=== PATIENT | female | born 1990 | race Two or more races ===

== ENCOUNTER 2018-05-15 00:16 | Emergency (ER) | payer BC, OTHER ==
[2018-05-15] MEDS ORDERED: Ondansetron 4 MG/2 ML SDV IVPUSH ONE (00:52)
[2018-05-15] MEDS ORDERED: HYDROmorphone 1 MG/ML Syringe IVPUSH ONE (00:52)
--- NOTE | 2018-05-15 00:59 | EDM.PDOC ---
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 The pain alternates between sharp and dull , and radiates to her lower right back. It is constant, and the patient has not identified any modifiers. She denies associated fever, nausea, vomiting, constipation, or diarrhea. She denies having dysuria, but states that she did have urinary urgency just before coming to the ER. The patient states that she has a history of polycystic ovarian disease, but that this current episode is different than those. No prior similar symptoms. The patient's LMP was 04/30/2018. The patient is not on control, in fact, the patient and her are trying to get . She is 0. No vaginal bleeding tonight. The patient's last ate around 18:00. The patient's PCP is Nevaeh Marte. Her Orange Picker is Dr. Renetta Ramsay. 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 History: Reports: Polycystic Ovaries Endocrine/Metabolic History: Reports: Obesity/BMI 30+ - Past Surgical History GI Surgical History: Reports: Cholecystectomy (2015) Female Surgical History: Reports: Other (See Below) (Hysteroscopy Feb 2018) Social & Family History - Tobacco Use Smoking Status *Q: Never Smoker Second Hand Smoke Exposure: No - Caffeine Use Caffeine Use: Reports: None - Alcohol Use Alcohol Use History: Yes Alcohol Use Frequency: Rarely - Recreational Drug Use Recreational Drug Use: No - Living Situation & Occupation Living situation: Reports: , with Spouse 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 ED EXAM, GENERAL - Physical Exam Exam: See Below Exam Limited By: No Limitations General Appearance: Alert, WD/WN, No Apparent Distress (Appears uncomfortable) Eye Exam: Bilateral Eye: EOMI, Normal Inspection Ears: Normal External Exam, Hearing Grossly Normal Nose: Normal Inspection Throat/Mouth: Normal Inspection, Normal Lips, Normal Voice, No Airway Compromise Head: Atraumatic, Normocephalic Neck: Normal Inspection, Full Range of Motion Respiratory/Chest: No Respiratory Distress, Lungs Clear, Normal Breath Sounds, No Accessory Muscle Use Cardiovascular: Normal Peripheral Pulses, Regular Rate, Rhythm, No Gallop, No JVD, No Murmur, No Rub Peripheral Pulses: 4+: Radial (L), Radial (R) GI/Abdominal: Normal Bowel Sounds, Soft, No Organomegaly, No Distention, No Abnormal Bruit, No Mass, Tender (Right lower quadrant only. Nontender elsewhere. ), Other (Obese) (Female) Exam: Deferred Rectal (Female) Exam: Deferred Back Exam: Normal Inspection, Full Range of Motion, CVA Tenderness (R). No: CVA Tenderness (L) Extremities: Normal Inspection, Normal Range of Motion, No Pedal Edema, Normal Capillary Refill Neurological: Alert, Oriented, Normal Cognition, No Motor/Sensory Deficits Psychiatric: Normal Affect Skin Exam: Warm, Dry, Intact, Normal Color, No Rash Course - Vital Signs Last Recorded V/S: Last Vital Signs Temp Pulse 80 05/15/18 00:29 Resp 20 05/15/18 00:29 BP 129/74 05/15/18 00:29 Pulse Ox 98 05/15/18 00:29 - Orders/Labs/Meds Orders: Active Orders 24 hr Category Date Time Status Abdomen Pelvis w Cont [CT] Stat Exams 05/15/18 02:37 Taken Transvaginal Non OB [US] Stat Exams 05/15/18 02:38 Taken Sodium Chloride 0.9% [Normal Saline] 1,000 ml Med 05/15/18 01:00 Active IV ASDIRECTED Medication Orders Sodium Chloride (Normal Saline) 1,000 mls @ 150 mls/hr IV ASDIRECTED AUGUSTO Last Admin: 05/15/18 01:07 Dose: 150 mls/hr Labs: Laboratory Tests 05/15/18 05/15/18 05/15/18 Range/Units 00:40 00:40 01:05 WBC 9.53 (3.98-10.04) K/mm3 RBC 4.79 (3.98-5.22) M/mm3 Hgb 14.2 (11.2-15.7) gm/L Hct 43.2 (34.1-44.9) % MCV 90.2 (79.4-94.8) fl MCH 29.6 (25.6-32.2) pg MCHC 32.9 (32.2-35.5) g/dl RDW Std Deviation 43.0 (36.4-46.3) fL Plt Count 348 (182-369) K/mm3 MPV 10.0 (9.4-12.3) fl Neutrophils % (Manual) 43 (40-60) % Band Neutrophils % 0 (0-10) % Lymphocytes % (Manual) 42 H (20-40) % Atypical Lymphs % 0 % Monocytes % (Manual) 12 H (2-10) % Eosinophils % (Manual) 2 (0.7-5.8) % Basophils % (Manual) 1 (0.1-1.2) Platelet Estimate Adequate Plt Morphology Comment Normal RBC Morph Comment Normal Sodium 143 (136-145) mEq/L Potassium 3.5 (3.5-5.1) mEq/L Chloride 106 (98-107) mEq/L Carbon Dioxide 26 (21-32) mEq/L Anion Gap 14.5 (5-15) BUN 9 (7-18) mg/dL Creatinine 0.9 (0.55-1.02) mg/dL Est Cr Clr Drug Dosing 75.58 mL/min Estimated GFR (MDRD) > 60 (>60) mL/min BUN/Creatinine Ratio 10.0 L (14-18) Glucose 98 (74-106) mg/dL Calcium 9.0 (8.5-10.1) mg/dL Total Bilirubin 0.4 (0.2-1.0) mg/dL AST 20 (15-37) U/L ALT 37 (14-59) U/L Alkaline Phosphatase 105 (46-116) U/L Total Protein 8.4 H (6.4-8.2) g/dl Albumin 4.0 (3.4-5.0) g/dl Globulin 4.4 gm/dL Albumin/Globulin Ratio 0.9 L (1-2) Urine Color Yellow (Yellow) Urine Appearance Slt cloudy H (Clear) Urine pH 6.0 (5.0-8.0) Ur Specific [place] 1.025 (1.005-1.030) Urine Protein Negative (Negative) Urine Glucose (UA) Negative (Negative) Urine Ketones Negative (Negative) Urine Occult Blood Negative (Negative) Urine Nitrite Negative (Negative) Urine Bilirubin Negative (Negative) Urine Urobilinogen 0.2 (0.2-1.0) Ur Leukocyte Esterase Negative (Negative) Urine RBC 0-5 (0-5) /hpf Urine WBC 0-5 (0-5) /hpf Ur Epithelial Cells 0-5 (0-5) /hpf Urine Bacteria Moderate H (FEW) /hpf Urine Mucus Many H (FEW) /hpf Urine HCG, Qual (NEGATIVE) 05/15/18 Range/Units 01:05 WBC (3.98-10.04) K/mm3 RBC (3.98-5.22) M/mm3 Hgb (11.2-15.7) gm/L Hct (34.1-44.9) % MCV (79.4-94.8) fl MCH (25.6-32.2) pg MCHC (32.2-35.5) g/dl RDW Std Deviation (36.4-46.3) fL Plt Count (182-369) K/mm3 MPV (9.4-12.3) fl Neutrophils % (Manual) (40-60) % Band Neutrophils % (0-10) % Lymphocytes % (Manual) (20-40) % Atypical Lymphs % % Monocytes % (Manual) (2-10) % Eosinophils % (Manual) (0.7-5.8) % Basophils % (Manual) (0.1-1.2) Platelet Estimate Plt Morphology Comment RBC Morph Comment Sodium (136-145) mEq/L Potassium (3.5-5.1) mEq/L Chloride (98-107) mEq/L Carbon Dioxide (21-32) mEq/L Anion Gap (5-15) BUN (7-18) mg/dL Creatinine (0.55-1.02) mg/dL Est Cr Clr Drug Dosing mL/min Estimated GFR (MDRD) (>60) mL/min BUN/Creatinine Ratio (14-18) Glucose (74-106) mg/dL Calcium (8.5-10.1) mg/dL Total Bilirubin (0.2-1.0) mg/dL AST (15-37) U/L ALT (14-59) U/L Alkaline Phosphatase (46-116) U/L Total Protein (6.4-8.2) g/dl Albumin (3.4-5.0) g/dl Globulin gm/dL Albumin/Globulin Ratio (1-2) Urine Color (Yellow) Urine Appearance (Clear) Urine pH (5.0-8.0) Ur Specific [place] (1.005-1.030) Urine Protein (Negative) Urine Glucose (UA) (Negative) Urine Ketones (Negative) Urine Occult Blood (Negative) Urine Nitrite (Negative) Urine Bilirubin (Negative) Urine Urobilinogen (0.2-1.0) Ur Leukocyte Esterase (Negative) Urine RBC (0-5) /hpf Urine WBC (0-5) /hpf Ur Epithelial Cells (0-5) /hpf Urine Bacteria (FEW) /hpf Urine Mucus (FEW) /hpf Urine HCG, Qual Negative (NEGATIVE) Meds: Medications Generic Name Dose Route Start Last Admin Trade Name Freq PRN Reason Stop Dose Admin Sodium Chloride 1,000 mls @ 150 mls/hr 05/15/18 01:00 05/15/18 01:07 Normal Saline IV 150 mls/hr ASDIRECTED AUG[place]O Administration Discontinued Medications Generic Name Dose Route Start Last Admin Trade Name Freq PRN Reason Stop Dose Admin Hydromorphone HCl 1 mg 05/15/18 00:52 05/15/18 01:06 Dilaudid IVPUSH 05/15/18 00:53 1 mg ONETIME ONE Administration Hydromorphone HCl 0.5 mg 05/15/18 01:41 05/15/18 01:46 Dilaudid IVPUSH 05/15/18 01:42 0.5 mg ONETIME STA Administration Hydromorphone HCl 0.5 mg 05/15/18 04:30 05/15/18 04:34 Dilaudid IVPUSH 05/15/18 04:31 Not Given ONETIME ONE Hydromorphone HCl 0.5 mg 05/15/18 04:33 05/15/18 04:37 Dilaudid IVPUSH 05/15/18 04:34 0.5 mg ONETIME STA Administration Metoclopramide HCl 10 mg 05/15/18 02:30 05/15/18 02:33 Reglan IVPUSH 05/15/18 02:31 10 mg ONETIME STA Administration Ondansetron HCl 4 mg 05/15/18 00:52 05/15/18 01:04 Zofran IVPUSH 05/15/18 00:53 4 mg ONETIME ONE Administration - Re-Assessments/Exams Free Text/Narrative Re-Assessment/Exam: 05/15/18 00:54 The patient is quite tender in the right lower quadrant of her abdomen and right pelvis, but she also has right CVA tenderness, concerning for either pyelonephritis or a ureterolith. The sudden onset of her symptoms is more consistent with a ureterolith, however, a ureterolith, while it can radiate pain to the abdomen, should not cause tenderness on palpation. I have ordered some blood work, a urinalysis, and a urine test. If she has a UTI, we can proceed to treating with an antibiotic, however, if she does not, further workup will likely be necessary. In the meantime, the patient will receive IV Dilaudid, IV Zofran, and IV fluid. 05/15/18 02:38 The patient's CBC, CMP, and urinalysis are all unremarkable. Her urine test is negative. I have therefore ordered a CT of the abdomen and pelvis with oral and IV contrast, primarily to rule out appendicitis, as well as a transvaginal ultrasound to evaluate for an ovarian torsion. 05/15/18 06:04 Transvaginal ultrasound is read by [facility] as "No acute findings". CT of the abdomen and pelvis with oral and IV contrast is read by [facility] as: 1. 2 mm stone at the right UVJ with mild right hydronephrosis. 2. Right nephrolithiasis. 05/15/18 06:12 Test results discussed with the patient and her . The patient's symptoms appear to be due to a 2 mm right ureterolith at the UVJ, which she will most likely pass on her own. She will receive a dose of Flomax prior to being discharged home, and I will discharge her home with prescriptions for [place], Zofran, and Flomax. I would like her to take [id number] ibuprofen. She should stay adequately hydrated and strain all of her urine. I will refer her to Urology, should her symptoms not resolve within the next few days. Departure - Departure Time of Disposition: 06:16 Disposition: Home, Self-Care 01 Condition: Fair Clinical Impression: Ureterolithiasis - Discharge Information *PRESCRIPTION DRUG MONITORING PROGRAM REVIEWED*: Not Applicable *COPY OF PRESCRIPTION DRUG MONITORING REPORT IN PATIENT ARA: Not Applicable Prescriptions: Acetaminophen/HYDROcodone [[place] 325-5 MG] 1 - 2 tab PO Q6H PRN #20 tablet PRN Reason: Pain (Severe 7-10) Ondansetron [Zofran ODT] 1 tab PO Q8H PRN #10 tab.dis PRN Reason: Nausea/Vomiting Tamsulosin HCl [Flomax] 1 cap PO QAM PRN #4 cap.er.24h PRN Reason: Pain Referrals: Nevaeh Marte PA-C [Primary Care Provider] - Rene Reynolds MD [Ordering Only Provider] - Forms: ED Department Discharge Additional Instructions: You were seen in the emergency room for sudden-onset right lower abdominal pain radiating through to your right back. Workup in the ER included blood work, a urinalysis, a urine test, a CT scan of your abdomen and pelvis, and a transvaginal ultrasound. Your workup found that you have a 2 mm stone in your right ureter, right by your bladder. Based on the size and location of the stone, you will likely pass it on your own. Take ciso-ejv-nxyhwbh ibuprofen, 2-3 tablets (400-600 mg) every 8 hours, with food, as needed for pain. Take 1 to 2 tablets of the opioid pain reliever [place] up to every 6 hours, as needed for pain not relieved by ibuprofen. If you take [place], do not drive for 10 hours afterwards. [place] may cause constipation, so consider taking a stool softener. Take one tablet of the anti-spasm medicine Flomax every morning, starting tomorrow morning, , 05/16/2018, as needed for pain. Dissolve one tablet of the anti-nausea medicine and Zofran on your tongue up to every 8 hours, as needed for nausea/vomiting. Stay adequately hydrated, and strain all of your urine. If you capture the stone, take it to your doctor for analysis. If you continue to have pain by the end of this week, please follow-up with the Urologist Dr. Rene Reynolds in [place], next week. If any other problems, please do not hesitate to return to the ER. - My Orders Last 24 Hours: My Active Orders 05/15/18 01:00 Sodium Chloride 0.9% [Normal Saline] 1,000 ml IV ASDIRECTED 05/15/18 02:37 Abdomen Pelvis w Cont [CT] Stat 05/15/18 02:38 Transvaginal Non OB [US] Stat - Assessment/Plan Last 24 Hours: My Active Orders 05/15/18 01:00 Sodium Chloride 0.9% [Normal Saline] 1,000 ml IV ASDIRECTED 05/15/18 02:37 Abdomen Pelvis w Cont [CT] Stat 05/15/18 02:38 Transvaginal Non OB [US] Stat
[2018-05-15] MEDS ORDERED: Sodium Chloride 0.9% 1,000 ML IV SCH (01:00)
[2018-05-15] MEDS ORDERED: HYDROmorphone 1 MG/ML Syringe IVPUSH STA ×2 (01:41→04:33)
[2018-05-15] MEDS ORDERED: Metoclopramide 10 MG/2 ML SDV IVPUSH STA (02:30)
[2018-05-15] MEDS ORDERED: HYDROmorphone 0.5 MG/0.5 ML Syringe IVPUSH ONE (04:30)
[2018-05-15] MEDS ORDERED: Tamsulosin 0.4 MG Cap.ER PO ONE (06:13)
[2018-05-15] MEDS ORDERED: Ketorolac 30 MG/ML SDV IVPUSH STA (06:13)
--- NOTE | 2018-05-15 07:10 | US ---
Pelvic ultrasound: Multiple real-time images were obtained transvaginally. Comparison: No prior pelvic ultrasound. Uterus is anteverted. No myometrial abnormality is seen. Incidental small nabothian cyst is seen. Small amount of fluid is seen within the cul-de-sac which is believed to be normal. Right and left ovaries show no cyst or mass. Measurements: Uterus: Length 6.1 cm, AP height 2.4 cm, transverse width 4.1 cm Right ovary: 2.8 x 2.3 x 2.5 cm Left ovary: 2.7 x 2.1 x 1.7 cm Impression: 1. Incidental nabothian cyst. Pelvic ultrasound is otherwise unremarkable. Diagnostic code #2 I agree with preliminary report from [facility], finalized on 05/15/18, 5:28 AM Central Time
--- NOTE | 2018-05-15 07:10 | CT ---
CT abdomen and pelvis Technique: Multiple axial sections were obtained from above the dome of the diaphragm inferiorly through the pubic symphysis. Intravenous contrast was utilized. Small amount of oral contrast is seen which remains within the stomach. Delayed images also obtained through the abdomen and pelvis. Findings: Right ureter is increased in size down to the UVJ. This finding is caused by a small obstructing stone located at the UVJ measuring 2.8 mm. Several other small nonobstructing calculi are seen within the right kidney. Decreased enhancement is noted of the right kidney compatible with the obstruction. Visualized lung bases show nothing acute. Liver shows no focal parenchymal abnormality. Surgical clips are seen from prior cholecystectomy. Adrenal glands show no nodule. Pancreas is within normal limits. Aorta shows no aneurysm. No retroperitoneal adenopathy or mesenteric abnormalities are seen. No pelvic mass or adenopathy is seen. No free fluid or inflammatory change is seen. Bone window settings were reviewed which appear within normal limits. Delayed images show contrast within the left ureter and bladder. No contrast excretion into the right ureter is seen compatible with the obstruction. Bone window settings were reviewed which appear within normal limits for the patient's age. Impression: 1. Findings compatible with high grade obstruction within the distal right ureter secondary to 2.8 mm obstructing stone at the UVJ. 2. Other incidental findings as noted above. Diagnostic code #3 I agree with preliminary report from [facility], finalized on 05/15/18, 6:11 AM Central Time
== END 2018-05-15 06:40 | disposition home or self-care (01) ==
LOC: JD.ED 00:16
DX: N13.2 Hydronephrosis with renal and ureteral calculous obstruction (principal); Z79.899 Other long term (current) drug therapy
CPT/HCPCS: 36415; 74177; 76830; 80053; 81001; 81025; 85007; 85027; 96361; 96374; 96375; 96376; 99284; A9270; J1170; J2405; J2765; J7040

== ENCOUNTER 2019-08-26 09:17 | Inpatient (IN) | payer BC, OTHER ==
[2019-08-26] MEDS ORDERED: Sodium Chloride 0.9% 10 ML Syringe FLUSH PRN (09:29)
[2019-08-26] MEDS ORDERED: Ondansetron 4 MG/2 ML SDV IVPUSH PRN (09:29)
[2019-08-26] MEDS ORDERED: Acetaminophen 325 MG Tab PO PRN (09:29)
[2019-08-26] MEDS ORDERED: Calcium Carbonate 500 MG Tab.Chew PO PRN (09:29)
[2019-08-26] MEDS ORDERED: Oxytocin/Lactated Ringers 10 UNIT/1,000 ML BAG IV SCH ×2 (09:30)
--- NOTE | 2019-08-26 09:33 | PCM.LDHP ---
L&D History of Present Illness - General Date of Service: 08/26/19 Admit Problem/Dx: Patient Status Order with Admit Dx/Problem 08/26/19 09:29 Patient Status [ADT] Routine Admission Diagnosis/Problem Admission Diagnosis/Problem Cholestasis of Source of Information: Patient History Limitations: Reports: No Limitations - History of Present Illness Introduction:: Patient is a 28 y/o at 37 0/7 wks who is being induced for presumed cholestasis of . Last week in clinic had noted itching of feet which she thought might be related to sweating. Bile acids done and returned now with a value of 9. Since clinic appt symptoms have worsened. States Sunday itching was unbearable. 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 : 1 Para: 0 LMP (Approximate): Endocrine/Metabolic History: Reports: Obesity/BMI 30+ - Past Surgical History GI Surgical History: Reports: Cholecystectomy (2015) Female Surgical History: Reports: Other (See Below) (Hysteroscopy Feb 2018) Social & Family History - Tobacco Use Smoking Status *Q: Never Smoker - Caffeine Use Caffeine Use: Reports: None - Alcohol Use Alcohol Use History: No - Recreational Drug Use Recreational Drug Use: No - Living Situation & Occupation Living situation: Reports: , with Spouse 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, [employer]) H&P Review of Systems - Review of Systems: Review Of Systems: See Below General: Reports: No Symptoms Pulmonary: Reports: No Symptoms Cardiovascular: Reports: No Symptoms Gastrointestinal: Reports: No Symptoms Genitourinary: Reports: No Symptoms Musculoskeletal: Reports: No Symptoms Neurological: Reports: No Symptoms L&D Exam - Exam Exam: See Below - OB Specific Contraction Intensity: Irritability Movement: Active Heart Tones: Present Heart Tones per Min: 140 Heart Rate (FHR) Variability: Moderate (6-25 bmp) Presentation: Vertex - Rm Score Rm Score Cervix Position: Posterior Rm Score Consistency: Firm Rm Score Effacement: 0-30% Rm Score Dilation: Closed Rm Score 's Station: -3 Rm Score Total: 0 - Exam General: Alert, Oriented, Cooperative Lungs: Clear to Auscultation, Normal Respiratory Effort Cardiovascular: Regular Rate, Regular Rhythm GI/Abdominal Exam: Soft, Non-Tender Genitourinary: Normal external exam Extremities: Normal Inspection - Patient Data Result Diagrams: 08/26/19 10:38 08/26/19 10:38 - Problem List (1) 37 weeks gestation of SNOMED Code(s): 15409966 ICD Code: Z3A.37 - 37 WEEKS GESTATION OF Status: Acute Current Visit: Yes (2) Cholestasis during SNOMED Code(s): 276339156 ICD Code: O26.619 - LIVER AND BILIARY TRACT DISORD IN , UNSP TRIMESTER; K83.1 - OBSTRUCTION OF BILE DUCT Status: Acute Current Visit: Yes Qualifiers: Trimester: third trimester Qualified Code(s): O26.613 - Liver and biliary tract disorders in , third trimester; K83.1 - Obstruction of bile duct Problem List Initiated/Reviewed/Updated: Yes Orders Last 24hrs: Active Orders 24 hr Category Date Time Status Patient Status [ADT] Routine ADT 08/26/19 09:29 Ordered Communication Order [RC] ASDIRECTED Care 08/26/19 09:29 Ordered Communication Order [RC] ASDIRECTED Care 08/26/19 09:29 Ordered Communication Order [RC] ASDIRECTED Care 08/26/19 09:29 Ordered Heart Tones [RC] ASDIRECTED Care 08/26/19 09:30 Ordered Non Stress Test [RC] PER UNIT ROUTINE Care 08/26/19 09:29 Ordered Notify Provider [RC] ASDIRECTED Care 08/26/19 09:29 Ordered Notify Provider [RC] PRN Care 08/26/19 09:29 Ordered Peripheral IV Care [RC] . DIRECTED Care 08/26/19 09:30 Ordered Up ad Annika [RC] ASDIRECTED Care 08/26/19 09:30 Ordered Vaginal Exam [RC] ASDIRECTED Care 08/26/19 09:29 Ordered Vital Signs [RC] ASDIRECTED Care 08/26/19 09:29 Ordered Regular Diet [DIET] Diet 08/26/19 Breakfast Ordered BILE ACIDS [REF] Routine Lab 08/26/19 09:29 Ordered CBC W/O DIFF,HEMOGRAM [HEME] Routine Lab 08/26/19 09:29 Ordered COMPREHENSIVE METABOLIC PN,CMP [CHEM] Routine Lab 08/26/19 09:29 Ordered RAPID PLASMA REAGIN,RPR [CHEM] Routine Lab 08/26/19 09:29 Ordered TYPE AND SCREEN [BBK] Routine Lab 08/26/19 09:29 Ordered Acetaminophen [Tylenol] Med 08/26/19 09:29 Ordered 650 mg PO Q4H PRN Calcium Carbonate [Tums] Med 08/26/19 09:29 Ordered 1,000 mg PO Q2H PRN Lactated Ringers [Ringers, Lactated] 1,000 ml Med 08/26/19 09:30 Ordered IV ASDIRECTED Nalbuphine [Nubain] Med 08/26/19 09:29 Ordered 10 mg IVPUSH Q2H PRN Ondansetron [Zofran] Med 08/26/19 09:29 Ordered 4 mg IVPUSH Q4H PRN Oxytocin/Lactated Ringers [Pitocin in LR 10 Units/1,000 Med 08/26/19 09:30 Ordered ML] 10 unit in 1,000 ml IV .CONTINUOUS Oxytocin/Lactated Ringers [Pitocin in LR 10 Units/1,000 Med 08/26/19 09:30 Ordered ML] 10 unit in 1,000 ml IV TITRATE Sodium Chloride 0.9% [Saline Flush] Med 08/26/19 09:29 Ordered 10 ml FLUSH ASDIRECTED PRN miSOPROStoL [Cytotec] Med 08/26/19 09:29 Ordered 25 mcg VAG Q4H PRN Electronic Heart Tones Ext w TOCO [WOMSER] Oth 08/26/19 09:29 Ordered Routine Electronic Heart Tones Internal [WOMSER] Per Unit Oth 08/26/19 09:29 Ordered Routine Medication Administration Instruction [OM.PC] Routine Ot 08/26/19 09:29 Ordered Peripheral IV Insertion Adult [OM.PC] Routine Oth 08/26/19 09:29 Ordered Resuscitation Status Routine Resus Stat 08/26/19 09:29 Ordered Medication Orders Acetaminophen (Tylenol) 650 mg PO Q4H PRN PRN Reason: Pain (Mild 1-3) and fever Calcium Carbonate/Glycine (Tums) 1,000 mg PO Q2H PRN PRN Reason: Indigestion Lactated Ringer's (Ringers, Lactated) 1,000 mls @ 40 mls/hr IV ASDIRECTED AUGUSTO Oxytocin/Lactated Ringer's (Pitocin In Lr 10 Units/1,000 Ml) 10 unit in 1,000 mls @ 12 mls/hr IV TITRATE A[place]O; Protocol Oxytocin/Lactated Ringer's (Pitocin In Lr 10 Units/1,000 Ml) 10 unit in 1,000 mls @ 500 mls/hr IV .CONTINUOUS [place]O Misoprostol (Cytotec) 25 mcg VAG Q4H PRN PRN Reason: cervical ripening Nalbuphine HCl (Nubain) 10 mg IVPUSH Q2H PRN PRN Reason: Pain Ondansetron HCl (Zofran) 4 mg IVPUSH Q4H PRN PRN Reason: Nausea/Vomiting Sodium Chloride (Saline Flush) 10 ml FLUSH ASDIRECTED PRN PRN Reason: Keep Vein Open Assessment/Plan Comment:: Patient with bile acids collected last week at cut off of normal at 9 and worsening symptoms since drawn. Will re-draw, but treat as presumed cholestasis and begin IOL. * Bile acids, CMP, CBC, T&S * Cytotec for IOL. Pitocin when able * GBS negative * Pain management per patient preference * Anticipate
[2019-08-26] MEDS: Misoprostol 25 MCG (1/4 of 100 MCG) Tab VAG PRN ×3 (10:13→20:59)
[2019-08-26] MEDS ORDERED: fentaNYL 100 MCG/2 ML SDV EPIDUR PRN (17:25)
[2019-08-26] MEDS ORDERED: diphenhydrAMINE 50 MG/ML SDV IVPUSH PRN (17:25)
[2019-08-26] MEDS ORDERED: ePHEDrine 50 MG/ML SDV IVPUSH PRN (17:25)
--- NOTE | 2019-08-26 17:27 | PCM.PREANE ---
Preanesthetic Assessment - Procedure Proposed Procedure: Labor Epidural - Anesthesia/Transfusion/Family Hx Anesthesia History: Prior Anesthesia Without Reaction Family History of Anesthesia Reaction: No Transfusion History: No Prior Transfusion(s) - Review of Systems General: No Symptoms Pulmonary: No Symptoms Cardiovascular: No Symptoms Gastrointestinal: Other (Cholestasis in . ) Neurological: No Symptoms Other: Reports: None (Morbid Obesity BMI 48. Itching. ) - Physical Assessment Vital Signs: Last Vital Signs Temp 37.1 C 08/26/19 09:29 Pulse 87 08/26/19 09:29 Resp 16 08/26/19 09:29 BP 135/78 08/26/19 09:29 Pulse Ox 97 08/26/19 09:29 Height: 1.57 m Weight: 119.748 kg ASA Class: 3 Mental Status: Alert & Oriented x3 Airway Class: Mallampati = 2 Dentition: Reports: Normal Dentition Thyro-Mental Finger Breadths: 4 Mouth Opening Finger Breadths: 4 ROM/Head Extension: Full Lungs: Clear to Auscultation, Normal Respiratory Effort Cardiovascular: Regular Rate, Regular Rhythm - Lab Values: Laboratory Last Values WBC 10.94 K/mm3 (3.98-10.04) H 08/26/19 10:38 RBC 4.18 M/mm3 (3.98-5.22) 08/26/19 10:38 Hgb 11.4 gm/dl (11.2-15.7) D 08/26/19 10:38 Hct 35.5 % (34.1-44.9) 08/26/19 10:38 MCV 84.9 fl (79.4-94.8) D 08/26/19 10:38 MCH 27.3 pg (25.6-32.2) 08/26/19 10:38 MCHC 32.1 g/dl (32.2-35.5) L 08/26/19 10:38 RDW Std Deviation 42.3 fL (36.4-46.3) 08/26/19 10:38 Plt Count 310 K/mm3 (182-369) 08/26/19 10:38 MPV 10.2 fl (9.4-12.3) 08/26/19 10:38 Sodium 138 mEq/L (136-145) 08/26/19 10:38 Potassium 3.7 mEq/L (3.5-5.1) 08/26/19 10:38 Chloride 106 mEq/L (98-107) 08/26/19 10:38 Carbon Dioxide 20 mEq/L (21-32) L 08/26/19 10:38 Anion Gap 15.7 (5-15) H 08/26/19 10:38 BUN 7 mg/dL (7-18) 08/26/19 10:38 Creatinine 0.6 mg/dL (0.55-1.02) 08/26/19 10:38 Est Cr Clr Drug Dosing 112.38 mL/min 08/26/19 10:38 Estimated GFR (MDRD) > 60 mL/min (>60) 08/26/19 10:38 BUN/Creatinine Ratio 11.7 (14-18) L 08/26/19 10:38 Glucose 80 mg/dL (74-106) 08/26/19 10:38 Calcium 8.7 mg/dL (8.5-10.1) 08/26/19 10:38 Total Bilirubin 0.3 mg/dL (0.2-1.0) 08/26/19 10:38 AST 25 U/L (15-37) 08/26/19 10:38 ALT 20 U/L (14-59) 08/26/19 10:38 Alkaline Phosphatase 241 U/L (46-116) H 08/26/19 10:38 Total Protein 6.9 g/dl (6.4-8.2) 08/26/19 10:38 Albumin 2.4 g/dl (3.4-5.0) L 08/26/19 10:38 Globulin 4.5 gm/dL 08/26/19 10:38 Albumin/Globulin Ratio 0.5 (1-2) L 08/26/19 10:38 RPR Non-reactive (NONREACTIVE) 08/26/19 10:38 Blood Type O POSITIVE 08/26/19 10:38 Gel Antibody Screen Negative 08/26/19 10:38 - Allergies Allergies/Adverse Reactions: Allergies Allergy/AdvReac Type Severity Reaction Status Date / Time No Known Allergies Allergy Verified 08/26/19 11:15 - Acknowledgements Anesthesia Type Planned: Epidural Pt an Appropriate Candidate for the Planned Anesthesia: Yes Alternatives and Risks of Anesthesia Discussed w Pt/Guardian: Yes Pt/Guardian Understands and Agrees with Anesthesia Plan: Yes PreAnesthesia Questionnaire - Past Health History Medical/Surgical History: Denies Medical/Surgical History Gastrointestinal History: Reports: GERD, Other (See Below) Other Gastrointestinal History: Cholestasis Genitourinary History: Reports: Renal Calculus Other Genitourinary History: Kidney stones [employer] History: Reports: Polycystic Ovaries Endocrine/Metabolic History: Reports: Obesity/BMI 30+ - Past Surgical History GI Surgical History: Reports: Cholecystectomy (2016) Female Surgical History: Reports: Other (See Below) (Hysteroscopy Feb 2018) - SUBSTANCE USE Smoking Status *Q: Never Smoker Second Hand Smoke Exposure: No Recreational Drug Use History: No - HOME MEDS Home Medications: Home Meds Ondansetron [Zofran ODT] 1 tab PO Q8H PRN #10 tab.dis 05/15/18 [Rx] Calcium Carbonate [Tums] 500 mg PO Q2HR PRN 08/26/19 [History] Cyclobenzaprine [Flexeril] 5 mg PO TID 08/26/19 [History] Folic Acid 0.4 mg PO DAILY 08/26/19 [History] Omeprazole 20 mg PO DAILY 08/26/19 [History] - CURRENT (IN HOUSE) MEDS Current Meds: Current Medications Acetaminophen (Tylenol) 650 mg PO Q4H PRN PRN Reason: Pain (Mild 1-3) and fever Calcium Carbonate/Glycine (Tums) 1,000 mg PO Q2H PRN PRN Reason: Indigestion Lactated Ringer's (Ringers, Lactated) 1,000 mls @ 40 mls/hr IV ASDIRECTED [place]UG[place]O Oxytocin/Lactated Ringer's (Pitocin In Lr 10 Units/1,000 Ml) 10 unit in 1,000 mls @ 12 mls/hr IV TITRATE [place]; Protocol Oxytocin/Lactated Ringer's (Pitocin In Lr 10 Units/1,000 Ml) 10 unit in 1,000 mls @ 500 mls/hr IV .CONTINUOUS [place] Misoprostol (Cytotec) 25 mcg VAG Q4H PRN PRN Reason: cervical ripening Last Admin: 08/26/19 14:08 Dose: 25 mcg Nalbuphine HCl (Nubain) 10 mg IVPUSH Q2H PRN PRN Reason: Pain Ondansetron HCl (Zofran) 4 mg IVPUSH Q4H PRN PRN Reason: Nausea/Vomiting Sodium Chloride (Saline Flush) 10 ml FLUSH ASDIRECTED PRN PRN Reason: Keep Vein Open
[2019-08-26] MEDS: Nalbuphine 10 MG/ML Syringe IVPUSH PRN (21:12)
--- NOTE | 2019-08-26 21:13 | PCM.PNLD ---
Labor Progress Note - VS & Meds Vital Signs: Last Vital Signs Temp 37.1 C 08/26/19 09:29 Pulse 87 08/26/19 09:29 Resp 16 08/26/19 09:29 BP 135/78 08/26/19 09:29 Pulse Ox 97 08/26/19 09:29 Active Medications: Current Medications Acetaminophen (Tylenol) 650 mg PO Q4H PRN PRN Reason: Pain (Mild 1-3) and fever Calcium Carbonate/Glycine (Tums) 1,000 mg PO Q2H PRN PRN Reason: Indigestion Diphenhydramine HCl (Benadryl) 25 mg IVPUSH Q6H PRN PRN Reason: pruritis Ephedrine Sulfate (Ephedrine Sulfate) 5 mg IVPUSH ASDIRECTED PRN PRN Reason: Hypotension Fentanyl (Sublimaze) 100 mcg EPIDUR Q3H PRN PRN Reason: Pain Fentanyl/Bupivacaine HCl (Fentanyl/Bupivacaine/Ns 2 Mcg-0.125% 100 Ml) 100 ml EPIDUR ASDIRECTED PRN PRN Reason: Pain Lactated Ringer's (Ringers, Lactated) 1,000 mls @ 40 mls/hr IV ASDIRECTED [place] Oxytocin/Lactated Ringer's (Pitocin In Lr 10 Units/1,000 Ml) 10 unit in 1,000 mls @ 12 mls/hr IV TITRATE [place]; Protocol Oxytocin/Lactated Ringer's (Pitocin In Lr 10 Units/1,000 Ml) 10 unit in 1,000 mls @ 500 mls/hr IV .CONTINUOUS [place] Nalbuphine HCl (Nubain) 10 mg IVPUSH Q2H PRN PRN Reason: Pain Ondansetron HCl (Zofran) 4 mg IVPUSH Q4H PRN PRN Reason: Nausea/Vomiting Sodium Chloride (Saline Flush) 10 ml FLUSH ASDIRECTED PRN PRN Reason: Keep Vein Open Discontinued Medications Misoprostol (Cytotec) 25 mcg VAG Q4H PRN PRN Reason: cervical ripening Last Admin: 08/26/19 20:59 Dose: 25 mcg - Uterine Contractions Uterine Monitoring Mode: External [place] Contraction Intensity: Irritability Uterine Resting Tone: Soft - Monitoring Monitor Mode: External Ultrasound Heart Rate (FHR) Baseline: 145 Heart Rate (FHR) Variability: Moderate (6-25 bmp) Accelerations: Present, 15x15 Decelerations: None Strip Review: Category I - Vaginal Exam Dilation (cm): 1 Effacement (Percent): 75 Station: -2 Cervical Position: Posterior - Labor Progress (Free Text) Labor Progress: Patient received 2 doses of Cytotec. Had a lot of irritability and so 3rd dose delayed. Exam now show patient to still be only 1 cm (same as when 2nd dose placed). Will place 3rd as toco thought to be more irritability vs stronger contractions. Will plan for 4th dose overnight and then transition to Pitocin depending upon clinical course
[2019-08-27] MEDS ORDERED: Misoprostol 25 MCG (1/4 of 100 MCG) Tab VAG ONE (01:00)
[2019-08-27] MEDS: Nalbuphine 10 MG/ML Syringe IVPUSH PRN ×2 (01:47→10:01)
[2019-08-27] MEDS: Lactated Ringers 1,000 ML IV SCH ×3 (03:48→11:06)
--- NOTE | 2019-08-27 06:59 | PCM.PNLD ---
Labor Progress Note - VS & Meds Vital Signs: Last Vital Signs Temp 37.1 C 08/26/19 09:29 Pulse 87 08/26/19 09:29 Resp 16 08/26/19 09:29 BP 135/78 08/26/19 09:29 Pulse Ox 97 08/26/19 09:29 Active Medications: Current Medications Acetaminophen (Tylenol) 650 mg PO Q4H PRN PRN Reason: Pain (Mild 1-3) and fever Calcium Carbonate/Glycine (Tums) 1,000 mg PO Q2H PRN PRN Reason: Indigestion Diphenhydramine HCl (Benadryl) 25 mg IVPUSH Q6H PRN PRN Reason: pruritis Ephedrine Sulfate (Ephedrine Sulfate) 5 mg IVPUSH ASDIRECTED PRN PRN Reason: Hypotension Fentanyl (Sublimaze) 100 mcg EPIDUR Q3H PRN PRN Reason: Pain Fentanyl/Bupivacaine HCl (Fentanyl/Bupivacaine/Ns 2 Mcg-0.125% 100 Ml) 100 ml EPIDUR ASDIRECTED PRN PRN Reason: Pain Lactated Ringer's (Ringers, Lactated) 1,000 mls @ 40 mls/hr IV ASDIRECTED [place] Last Admin: 08/27/19 03:48 Dose: 40 mls/hr Oxytocin/Lactated Ringer's (Pitocin In Lr 10 Units/1,000 Ml) 10 unit in 1,000 mls @ 12 mls/hr IV TITRATE [place]; Protocol Last Titration: 08/27/19 06:22 Dose: 4 munits/min, 24 mls/hr Oxytocin/Lactated Ringer's (Pitocin In Lr 10 Units/1,000 Ml) 10 unit in 1,000 mls @ 500 mls/hr IV .CONTINUOUS [place] Nalbuphine HCl (Nubain) 10 mg IVPUSH Q2H PRN PRN Reason: Pain Last Admin: 08/27/19 01:47 Dose: 10 mg Ondansetron HCl (Zofran) 4 mg IVPUSH Q4H PRN PRN Reason: Nausea/Vomiting Sodium Chloride (Saline Flush) 10 ml FLUSH ASDIRECTED PRN PRN Reason: Keep Vein Open Discontinued Medications Misoprostol (Cytotec) 25 mcg VAG Q4H PRN PRN Reason: cervical ripening Last Admin: 06/02/20 20:59 Dose: 25 mcg Misoprostol (Cytotec) 25 mcg VAG ONETIME ONE Stop: 08/27/19 01:01 Last Admin: 08/27/19 01:03 Dose: 25 mcg - Uterine Contractions Uterine Monitoring Mode: External [place] Contraction Intensity: Mild to Moderate Uterine Resting Tone: Soft - Monitoring Monitor Mode: External Ultrasound Heart Rate (FHR) Baseline: 145 Heart Rate (FHR) Variability: Moderate (6-25 bmp) Accelerations: Present, 15x15 Decelerations: None, Variable Strip Review: Category II - Labor Progress (Free Text) Labor Progress: Doing well. Got 2 additional doses of cytotec (4 total). Switched to pitocin and currently at 6. Will continue per protocol.
--- NOTE | 2019-08-27 08:51 | PCM.PNLD ---
Labor Progress Note - VS & Meds Vital Signs: Last Vital Signs Temp 37.1 C 08/26/19 09:29 Pulse 87 08/26/19 09:29 Resp 16 08/26/19 09:29 BP 135/78 08/26/19 09:29 Pulse Ox 97 08/26/19 09:29 Active Medications: Current Medications Acetaminophen (Tylenol) 650 mg PO Q4H PRN PRN Reason: Pain (Mild 1-3) and fever Calcium Carbonate/Glycine (Tums) 1,000 mg PO Q2H PRN PRN Reason: Indigestion Diphenhydramine HCl (Benadryl) 25 mg IVPUSH Q6H PRN PRN Reason: pruritis Ephedrine Sulfate (Ephedrine Sulfate) 5 mg IVPUSH ASDIRECTED PRN PRN Reason: Hypotension Fentanyl (Sublimaze) 100 mcg EPIDUR Q3H PRN PRN Reason: Pain Fentanyl/Bupivacaine HCl (Fentanyl/Bupivacaine/Ns 2 Mcg-0.125% 100 Ml) 100 ml EPIDUR ASDIRECTED PRN PRN Reason: Pain Lactated Ringer's (Ringers, Lactated) 1,000 mls @ 40 mls/hr IV ASDIRECTED [place] Last Admin: 08/27/19 03:48 Dose: 40 mls/hr Oxytocin/Lactated Ringer's (Pitocin In Lr 10 Units/1,000 Ml) 10 unit in 1,000 mls @ 12 mls/hr IV TITRATE [place]; Protocol Last Titration: 08/27/19 08:25 Dose: 8 munits/min, 48 mls/hr Oxytocin/Lactated Ringer's (Pitocin In Lr 10 Units/1,000 Ml) 10 unit in 1,000 mls @ 500 mls/hr IV .CONTINUOUS [place] Nalbuphine HCl (Nubain) 10 mg IVPUSH Q2H PRN PRN Reason: Pain Last Admin: 08/27/19 01:47 Dose: 10 mg Ondansetron HCl (Zofran) 4 mg IVPUSH Q4H PRN PRN Reason: Nausea/Vomiting Sodium Chloride (Saline Flush) 10 ml FLUSH ASDIRECTED PRN PRN Reason: Keep Vein Open Discontinued Medications Misoprostol (Cytotec) 25 mcg VAG Q4H PRN PRN Reason: cervical ripening Last Admin: 06/02/20 20:59 Dose: 25 mcg Misoprostol (Cytotec) 25 mcg VAG ONETIME ONE Stop: 08/27/19 01:01 Last Admin: 08/27/19 01:03 Dose: 25 mcg - Uterine Contractions Uterine Monitoring Mode: External [place] Contraction Intensity: Mild to Moderate Uterine Resting Tone: Soft - Monitoring Monitor Mode: External Ultrasound Heart Rate (FHR) Baseline: 150 Heart Rate (FHR) Variability: Moderate (6-25 bmp) Accelerations: Present, 15x15 Decelerations: Variable Strip Review: Category II - Vaginal Exam Dilation (cm): 2 Effacement (Percent): 75 Station: -1 Cervical Position: Midposition - Labor Progress (Free Text) Labor Progress: Doing well. Pitocin was up to 8. Placed [place] bulb. Small deceleration noted after. Decreased pitocin to 4. Will try to increase again as able
[2019-08-27] MEDS: Bupivacaine/fentaNYL/NS 100 ML Bag EPIDUR PRN ×2 (10:30→19:15)
--- NOTE | 2019-08-27 12:10 | PCM.PNLD ---
Labor Progress Note - VS & Meds Vital Signs: Last Vital Signs Temp 37.1 C 08/26/19 09:29 Pulse 87 08/26/19 09:29 Resp 16 08/26/19 09:29 BP 135/78 08/26/19 09:29 Pulse Ox 97 08/26/19 09:29 Active Medications: Current Medications Acetaminophen (Tylenol) 650 mg PO Q4H PRN PRN Reason: Pain (Mild 1-3) and fever Calcium Carbonate/Glycine (Tums) 1,000 mg PO Q2H PRN PRN Reason: Indigestion Diphenhydramine HCl (Benadryl) 25 mg IVPUSH Q6H PRN PRN Reason: pruritis Ephedrine Sulfate (Ephedrine Sulfate) 5 mg IVPUSH ASDIRECTED PRN PRN Reason: Hypotension Fentanyl (Sublimaze) 100 mcg EPIDUR Q3H PRN PRN Reason: Pain Last Admin: 08/27/19 10:30 Dose: 100 mcg Fentanyl/Bupivacaine HCl (Fentanyl/Bupivacaine/Ns 2 Mcg-0.125% 100 Ml) 100 ml EPIDUR ASDIRECTED PRN PRN Reason: Pain Last Admin: 08/27/19 10:30 Dose: 100 ml Lactated Ringer's (Ringers, Lactated) 1,000 mls @ 40 mls/hr IV ASDIRECTED [place] Last Admin: 08/27/19 11:06 Dose: 40 mls/hr Oxytocin/Lactated Ringer's (Pitocin In Lr 10 Units/1,000 Ml) 10 unit in 1,000 mls @ 12 mls/hr IV TITRATE [place]; Protocol Last Titration: 08/27/19 10:01 Dose: 8 munits/min, 48 mls/hr Oxytocin/Lactated Ringer's (Pitocin In Lr 10 Units/1,000 Ml) 10 unit in 1,000 mls @ 500 mls/hr IV .CONTINUOUS [place] Nalbuphine HCl (Nubain) 10 mg IVPUSH Q2H PRN PRN Reason: Pain Last Admin: 08/27/19 10:01 Dose: 10 mg Ondansetron HCl (Zofran) 4 mg IVPUSH Q4H PRN PRN Reason: Nausea/Vomiting Sodium Chloride (Saline Flush) 10 ml FLUSH ASDIRECTED PRN PRN Reason: Keep Vein Open Discontinued Medications Misoprostol (Cytotec) 25 mcg VAG Q4H PRN PRN Reason: cervical ripening Last Admin: 08/26/19 20:59 Dose: 25 mcg Misoprostol (Cytotec) 25 mcg VAG ONETIME ONE Stop: 08/27/19 01:01 Last Admin: 08/27/19 01:03 Dose: 25 mcg - Uterine Contractions Uterine Monitoring Mode: External [place] Contraction Intensity: Mild to Moderate Uterine Resting Tone: Soft - Monitoring Monitor Mode: External Ultrasound Heart Rate (FHR) Baseline: 145 Heart Rate (FHR) Variability: Moderate (6-25 bmp) Accelerations: Present, 15x15 Decelerations: None Strip Review: Category I - Vaginal Exam Dilation (cm): 3-4 Effacement (Percent): 75 Station: -2 Cervical Position: Midposition - Labor Progress (Free Text) Labor Progress: Patient with some variables prior to epidural. Pitocin discontinued. Done with epidural and FHR appropriate. AROM performed with release of large amount of clear fluid. IUPC and FSE placed. Will monitor for a period of time and the restart pitocin as able
--- NOTE | 2019-08-27 17:48 | PCM.PNLD ---
Labor Progress Note - VS & Meds Vital Signs: Last Vital Signs Temp 37.1 C 08/26/19 09:29 Pulse 87 08/26/19 09:29 Resp 16 08/26/19 09:29 BP 135/78 08/26/19 09:29 Pulse Ox 97 08/26/19 09:29 Active Medications: Current Medications Acetaminophen (Tylenol) 650 mg PO Q4H PRN PRN Reason: Pain (Mild 1-3) and fever Calcium Carbonate/Glycine (Tums) 1,000 mg PO Q2H PRN PRN Reason: Indigestion Diphenhydramine HCl (Benadryl) 25 mg IVPUSH Q6H PRN PRN Reason: pruritis Ephedrine Sulfate (Ephedrine Sulfate) 5 mg IVPUSH ASDIRECTED PRN PRN Reason: Hypotension Fentanyl (Sublimaze) 100 mcg EPIDUR Q3H PRN PRN Reason: Pain Last Admin: 08/27/19 10:30 Dose: 100 mcg Fentanyl/Bupivacaine HCl (Fentanyl/Bupivacaine/Ns 2 Mcg-0.125% 100 Ml) 100 ml EPIDUR ASDIRECTED PRN PRN Reason: Pain Last Admin: 08/27/19 10:30 Dose: 100 ml Lactated Ringer's (Ringers, Lactated) 1,000 mls @ 40 mls/hr IV ASDIRECTED [place] Last Admin: 08/27/19 11:06 Dose: 40 mls/hr Oxytocin/Lactated Ringer's (Pitocin In Lr 10 Units/1,000 Ml) 10 unit in 1,000 mls @ 12 mls/hr IV TITRATE [place]; Protocol Last Titration: 08/27/19 16:09 Dose: 10 munits/min, 60 mls/hr Oxytocin/Lactated Ringer's (Pitocin In Lr 10 Units/1,000 Ml) 10 unit in 1,000 mls @ 500 mls/hr IV .CONTINUOUS [place] Nalbuphine HCl (Nubain) 10 mg IVPUSH Q2H PRN PRN Reason: Pain Last Admin: 08/27/19 10:01 Dose: 10 mg Ondansetron HCl (Zofran) 4 mg IVPUSH Q4H PRN PRN Reason: Nausea/Vomiting Sodium Chloride (Saline Flush) 10 ml FLUSH ASDIRECTED PRN PRN Reason: Keep Vein Open Discontinued Medications Misoprostol (Cytotec) 25 mcg VAG Q4H PRN PRN Reason: cervical ripening Last Admin: 08/26/19 20:59 Dose: 25 mcg Misoprostol (Cytotec) 25 mcg VAG ONETIME ONE Stop: 08/27/19 01:01 Last Admin: 08/27/19 01:03 Dose: 25 mcg - Uterine Contractions Uterine Monitoring Mode: External [place] Contraction Intensity: Mild to Moderate Uterine Resting Tone: Soft - Monitoring Monitor Mode: External Ultrasound Heart Rate (FHR) Baseline: 145 Heart Rate (FHR) Variability: Moderate (6-25 bmp) Accelerations: Present, 15x15 Decelerations: None Strip Review: Category I - Vaginal Exam Dilation (cm): 5 Effacement (Percent): 90 Station: -1 Cervical Position: Midposition - Labor Progress (Free Text) Labor Progress: Doing well. On 10 of pitocin. Making slow, but consistent change. Continue per protocol. Some mild range BP's throughout IOL. Will continue to monitor closely.
[2019-08-27] MEDS ORDERED: ceFAZolin 1 GM in Premix Bag 1 BAG IV ONE (22:53)
[2019-08-27] MEDS ORDERED: ceFAZolin 2 GM in Premix Bag 1 BAG IV ONE (22:53)
[2019-08-27] MEDS ORDERED: Metoclopramide 10 MG/2 ML SDV IVPUSH ONE (22:53)
[2019-08-27] MEDS ORDERED: Citric Acid/Sodium Citrate Solution 30 ML Cup PO ONE (22:53)
[2019-08-27] MEDS ORDERED: Citric Acid/Sodium Citrate Solution 30 ML Cup ONE (22:55)
--- NOTE | 2019-08-27 22:55 | PCM.SN.2 ---
- Free Text/Narrative Note: 2300 (late entry) Patient began pushing with RN around 2104. Called shortly thereafter due to late decelerations/deep variables with pushing. Presented to hospital. Patient moved to hands/knees. Pitocin decreased from 12 down to 8. Tracing improved somewhat. Eventually rotated back to lithotomy. At 0 patient with prolonged deceleration into the 80's lasting ~ 5 minutes. Decision made to attempt vacuum extraction. OR crew alerted at same time. Bladder emptied. Risks/benefits reviewed. Exam thought to show c/c/+2. Fetus thought to be ROP. Vacuum applied at 2226. Over 4 contractions patient pushed. Total pressure 550 mmHg. Vacuum removed at 2232. Only minimal descent noted. status overall reassuring afterwards, but still with intermittent decelerations. Reviewed options and patient consented to delivery by PLTCS. Consent reviewed and signed. Ancef and Azithromycin ASHISHOR Renetta Ramsay MD
[2019-08-27] MEDS ORDERED: Metoclopramide 10 MG/2 ML SDV ONE (22:56)
[2019-08-27] MEDS: Azithromycin 500 MG in Sodium Chloride 0.9% 250 ML IV ONE (23:00)
[2019-08-27] MEDS ORDERED: ceFAZolin 1 GM Vial ONE (23:03)
[2019-08-27] MEDS ORDERED: Morphine PF 1 MG/ML Amp ONE (23:16)
[2019-08-27] MEDS ORDERED: Lactated Ringers 1,000 ML ONE ×2 (23:17→23:52)
[2019-08-27] MEDS ORDERED: Midazolam 1 MG/ML 2 ML SDV ONE (23:28)
[2019-08-27] MEDS ORDERED: Methylergonovine 0.2 MG/1 ML Amp ONE (23:33)
[2019-08-27] MEDS ORDERED: Meperidine 50 MG/ML Vial ONE (23:48)
[2019-08-27] MEDS ORDERED: Phenylephrine 1% 10 MG/ML SDV ONE (23:50)
[2019-08-27] MEDS ORDERED: Oxytocin 10 Units/1 ML SDV ONE (23:53)
[2019-08-27] MEDS ORDERED: Ondansetron 4 MG/2 ML SDV ONE (23:59)
--- NOTE | 2019-08-28 00:11 | PCM.OPNOTE ---
- General Post-Op/Procedure Note Date of Surgery/Procedure: 08/28/19 Operative Procedure(s): Primary Low transverse Findings: Baby boy in OP presentation. Weight of 3.38 kg. Apgars of 7 & 9. Grossly normal appearance of the uterus, fallopian tubes, and ovaries. Pre Op Diagnosis: 37 weeks. Presumed cholestasis of (bile acids pending). NRFS/FTD Post-Op Diagnosis: As above, OP presentation Anesthesia Technique: Epidural Primary Surgeon: Renetta Ramsay Secondary Surgeon: Timothy Irwin Anesthesia Provider: Jayjay Molina Reason Russian Language Instructor Was Necessary: BMI of patient. Speed/safety of procedure Pathology: Cord blood collected. Placenta discarded Fluid Replacement, Intraop: 2,500 Output, Urine Amount: 100 EBL in mLs: 800 Complications: None Condition: Good Free Text/Narrative:: The risks, benefits, indications, potential complications, and alternatives were explained to the patient and informed consent obtained. After induction of anesthesia, the patient was placed in a supine position and then draped and prepped in the usual sterile manner. A Pfannenstiel incision was made and carried down through the subcutaneous tissue to the fascia. Fascial incision was made and extended transversely. The fascia was from the underlying rectus tissue superiorly and inferiorly. The peritoneum was identified and entered. Peritoneal incision was extended longitudinally. The utero-vesical peritoneal reflection was incised transversely and the bladder flap was bluntly freed from the lower uterine segment. A low transverse uterine incision was made sharply with a scalpel and extended bluntly in a cephalocaudad direction. A baby boy was delivered from a vertex presentation with APGARS as above. After the umbilical cord was clamped and cut cord blood was obtained for evaluation. The placenta was removed intact and appeared normal. The uterus was exteriorized and cleared of clots. Unfortunately due to patient's abdomen shape and amount of subcutaneous tissue not able to visualize hysterotomy with uterus exteriorized. Placed back in the abdomen. The uterine incision was closed with running locked sutures of 0 Vicryl. Hemostasis was obtained with a second layer closure in addition to several other interrupted sutures of 0 vicryl. The infracolic gutters were cleared of blood clots. The fascia was then reapproximated with running sutures of 0 PDS. The subcutaneous tissue was irrigated with sterile warm normal saline, hemostasis obtained with cautery. This layer was also closed with a running 0 Vicryl. The skin was reapproximated with running Subcuticular 4-0 monocryl sutures. Instrument, sponge, and needle counts were correct prior the abdominal closure and at the conclusion of the case.
--- NOTE | 2019-08-28 00:29 | PCM.POSTAN ---
POST ANESTHESIA ASSESSMENT - MENTAL STATUS Mental Status: Alert, Oriented - VITAL SIGNS Vital Signs: Last Vital Signs Temp 100.3 F 08/28/19 00:10 Pulse 102 H 08/28/19 00:10 Resp 22 H 08/28/19 00:10 BP 109/53 L 08/28/19 00:10 Pulse Ox 96 08/28/19 00:10 - RESPIRATORY Respiratory Status: Respiratory Rate WNL, Airway Patent, O2 Saturation Stable, Supplemental Oxygen - CARDIOVASCULAR CV Status: Blood Pressure Stable, Elevated Pulse Rate - GASTROINTESTINAL GI Status: No Symptoms - PAIN Pain Score: 0 (post AMIE) - POST OP HYDRATION Hydration Status: Adequate & Stable
[2019-08-28] MEDS ORDERED: Ampicillin 2 GM in Sodium Chloride 0.9% 100 ML IV SCH (01:15)
[2019-08-28] MEDS: Clindamycin Phosphate in D5W 900 MG in Premix Bag 1 BAG IV SCH ×6 (01:40→17:12)
[2019-08-28] MEDS: Azithromycin 500 MG in Sodium Chloride 0.9% 250 ML IV ONE (01:48)
[2019-08-28] MEDS ORDERED: Dextrose 5%-Lactated Ringers 1,000 ML IV SCH (02:01)
[2019-08-28] MEDS ORDERED: diphenhydrAMINE 50 MG/ML SDV IVPUSH PRN (02:01)
[2019-08-28] MEDS ORDERED: Gentamicin 600 MG in Sodium Chloride 0.9% 100 ML IV ONE (02:30)
[2019-08-28] MEDS ORDERED: Gentamicin 40 MG/ML 2 ML Vial ONE (03:20)
[2019-08-28] MEDS: Ketorolac 30 MG/ML SDV IVPUSH SCH ×3 (06:05→18:24)
--- NOTE | 2019-08-28 07:59 | PCM48HPAN ---
Post Anesthesia Note - EVALUATION WITHIN 48HRS OF ANESTHETIC Vital Signs in Normal Range: Yes Patient Participated in Evaluation: Yes Respiratory Function Stable: Yes Airway Patent: Yes Cardiovascular Function Stable: Yes Hydration Status Stable: Yes Pain Control Satisfactory: Yes Nausea and Vomiting Control Satisfactory: Yes Mental Status Recovered: Yes Vital Signs: Last Vital Signs Temp 37.6 C 08/28/19 06:00 Pulse 101 H 08/28/19 03:32 Resp 18 08/28/19 06:50 BP 120/63 08/28/19 03:32 Pulse Ox 98 08/28/19 06:50
[2019-08-28] MEDS: Ampicillin 2 GM in Sodium Chloride 0.9% 100 ML IV SCH ×3 (08:34→20:08)
[2019-08-28] MEDS ORDERED: Lactated Ringers 500 ML IV ONE ×2 (12:46→22:00)
[2019-08-28] MEDS ORDERED: Lactated Ringers 1,000 ML IV SCH ×3 (13:15→23:00)
--- NOTE | 2019-08-28 16:19 | PCM.PNPP ---
- General Info Date of Service: 08/28/19 Functional Status: Reports: Pain Controlled, Tolerating Diet, Ambulating - Review of Systems General: Reports: No Symptoms Pulmonary: Reports: No Symptoms Cardiovascular: Reports: No Symptoms Gastrointestinal: Reports: Abdominal Pain (managed) Genitourinary: Reports: No Symptoms Musculoskeletal: Reports: No Symptoms Neurological: Reports: No Symptoms - Patient Data Vital Signs - Most Recent: Last Vital Signs Temp 36.8 C 08/28/19 16:00 Pulse 103 H 08/28/19 16:05 Resp 16 08/28/19 16:00 BP 117/54 L 08/28/19 16:05 Pulse Ox 96 08/28/19 16:05 Weight - Most Recent: 119.748 kg I&O - Last 24 Hours: Intake & Output 08/28/19 08/28/19 08/28/19 06:59 14:59 22:59 Intake Total 450 2500 Output Total 775 200 100 Balance -325 -200 2400 Lab Results - Last 24 Hours: Laboratory Results - last 24 hr 08/28/19 Range/Units 15:11 WBC 16.84 H (3.98-10.04) K/mm3 RBC 3.49 L (3.98-5.22) M/mm3 Hgb 9.6 L D (11.2-15.7) gm/dl Hct 29.6 L (34.1-44.9) % MCV 84.8 (79.4-94.8) fl MCH 27.5 (25.6-32.2) pg MCHC 32.4 (32.2-35.5) g/dl RDW Std Deviation 42.7 (36.4-46.3) fL Plt Count 260 (182-369) K/mm3 MPV 10.0 (9.4-12.3) fl Med Orders - Current: Current Medications Diphenhydramine HCl (Benadryl) 25 mg IVPUSH Q6H PRN PRN Reason: Itching or Nausea Last Admin: 08/28/19 09:08 Dose: 50 mg Docusate Sodium (Colace) 100 mg PO Q12H PRN PRN Reason: Constipation Clindamycin Phosphate 900 mg/ (Premix) 50 mls @ 50 mls/hr IV Q8H [facility] Stop: 08/28/19 19:00 Last Admin: 08/28/19 09:12 Dose: 50 mls/hr Ampicillin Sodium 2 gm/ Sodium (Chloride) 100 mls @ 200 mls/hr IV Q6H [facility] Stop: 08/28/19 23:00 Last Admin: 08/28/19 15:17 Dose: 200 mls/hr Lactated Ringer's (Ringers, Lactated) 1,000 mls @ 500 mls/hr IV ASDIRECTED [facility] Last Admin: 08/28/19 13:00 Dose: 500 mls/hr Ibuprofen (Motrin) 600 mg PO Q6H PRN PRN Reason: mild pain or fever Ketorolac Tromethamine (Toradol) 30 mg IVPUSH Q6H [facility] Stop: 08/28/19 18:31 Last Admin: 08/28/19 12:23 Dose: 30 mg Oxycodone/Acetaminophen (Percocet 325-5 Mg) 1 tab PO Q4H PRN PRN Reason: Pain (moderate 4-6) Oxycodone/Acetaminophen (Percocet 325-5 Mg) 2 tab PO Q4H PRN PRN Reason: Pain (severe 7-10) Discontinued Medications Acetaminophen (Tylenol) 650 mg PO Q4H PRN PRN Reason: Pain (Mild 1-3) and fever Calcium Carbonate/Glycine (Tums) 1,000 mg PO Q2H PRN PRN Reason: Indigestion Cefazolin Sodium (Ancef) Confirm Administered Dose 3 gm .ROUTE .STK-MED ONE Stop: 08/27/19 23:04 Citric Acid/Sodium Citrate (Bicitra Solution) 30 ml PO ONETIME ONE Stop: 08/27/19 22:54 Last Admin: 08/27/19 22:55 Dose: 30 ml Citric Acid/Sodium Citrate (Bicitra Solution) Confirm Administered Dose 30 ml .ROUTE .STK-MED ONE Stop: 08/27/19 22:56 Last Admin: 08/28/19 01:48 Dose: Not Given Diphenhydramine HCl (Benadryl) 25 mg IVPUSH Q6H PRN PRN Reason: pruritis Ephedrine Sulfate (Ephedrine Sulfate) 5 mg IVPUSH ASDIRECTED PRN PRN Reason: Hypotension Fentanyl (Sublimaze) 100 mcg EPIDUR Q3H PRN PRN Reason: Pain Last Admin: 06/03/20 10:30 Dose: 100 mcg Fentanyl/Bupivacaine HCl (Fentanyl/Bupivacaine/Ns 2 Mcg-0.125% 100 Ml) 100 ml EPIDUR ASDIRECTED PRN PRN Reason: Pain Last Admin: 08/27/19 19:15 Dose: 100 ml Gentamicin Sulfate (Pharmacy To Dose - Gentamicin) 1 dose .XX ASDIRECTED [facility] Stop: 08/28/19 01:16 Gentamicin Sulfate (Gentamicin) Confirm Administered Dose 80 mg .ROUTE .STK-MED ONE Stop: 08/28/19 03:21 Last Admin: 08/28/19 03:37 Dose: Not Given Lactated Ringer's (Ringers, Lactated) 1,000 mls @ 40 mls/hr IV ASDIRECTED [facility] Last Admin: 08/27/19 11:06 Dose: 40 mls/hr Oxytocin/Lactated Ringer's (Pitocin In Lr 10 Units/1,000 Ml) 10 unit in 1,000 mls @ 12 mls/hr IV TITRATE [facility]; Protocol Last Titration: 08/27/19 17:47 Dose: 12 munits/min, 72 mls/hr Oxytocin/Lactated Ringer's (Pitocin In Lr 10 Units/1,000 Ml) 10 unit in 1,000 mls @ 500 mls/hr IV .CONTINUOUS [facility] Azithromycin 500 mg/ Sodium (Chloride) 250 mls @ 250 mls/hr IV ONETIME ONE Stop: 08/27/19 23:52 Last Admin: 08/28/19 01:48 Dose: Not Given Cefazolin Sodium/Dextrose 2 gm (/ Premix) 50 mls @ 100 mls/hr IV ONETIME ONE Stop: 08/27/19 23:22 Last Admin: 08/28/19 01:49 Dose: Not Given Cefazolin Sodium/Dextrose 1 gm (/ Premix) 50 mls @ 100 mls/hr IV ONETIME ONE Stop: 08/27/19 23:22 Last Admin: 08/28/19 01:49 Dose: Not Given Lactated Ringer's (Ringers, Lactated) Confirm Administered Dose 1,000 mls @ as directed .ROUTE .STK-MED ONE Stop: 08/27/19 23:18 Lactated Ringer's (Ringers, Lactated) Confirm Administered Dose 1,000 mls @ as directed .ROUTE .STK-MED ONE Stop: 08/27/19 23:53 Ampicillin Sodium 2 gm/ Sodium (Chloride) 100 mls @ 200 mls/hr IV Q6H [facility] Last Admin: 08/28/19 01:44 Dose: 200 mls/hr Gentamicin Sulfate 600 mg/ (Sodium Chloride) 115 mls @ 115 mls/hr IV ONETIME ONE Stop: 08/28/19 03:29 Last Admin: 08/28/19 03:36 Dose: 115 mls/hr Dextrose/Lactated Ringer's (Dextrose 5%-Lactated Ringers) 1,000 mls @ 125 mls/ hr IV ASDIRECTED [facility] Stop: 08/28/19 10:00 Meperidine HCl (Meperidine) Confirm Administered Dose 50 mg .ROUTE .STK-MED ONE Stop: 08/27/19 23:49 Methylergonovine Maleate (Methergine) Confirm Administered Dose 0.2 mg .ROUTE .STK-MED ONE Stop: 08/27/19 23:34 Last Admin: 08/27/19 23:40 Dose: 0.2 mg Metoclopramide HCl (Reglan) 10 mg IVPUSH ONETIME ONE Stop: 08/27/19 22:54 Last Admin: 08/27/19 22:55 Dose: 10 mg Metoclopramide HCl (Reglan) Confirm Administered Dose 10 mg .ROUTE .STK-MED ONE Stop: 08/27/19 22:57 Last Admin: 08/28/19 01:49 Dose: Not Given Midazolam HCl (Versed 1 Mg/Ml) Confirm Administered Dose 2 mg .ROUTE .STK-MED ONE Stop: 08/27/19 23:29 Miscellaneous Medication (Phenylephrine 1 Mg/10 Ml-Ns) Confirm Administered Dose 1 mg IV .STK-MED ONE Stop: 08/27/19 23:13 Miscellaneous Medication (Phenylephrine 1 Mg/10 Ml-Ns) Confirm Administered Dose 1 mg IV .STK-MED ONE Stop: 08/27/19 23:41 Misoprostol (Cytotec) 25 mcg VAG Q4H PRN PRN Reason: cervical ripening Last Admin: 08/26/19 20:59 Dose: 25 mcg Misoprostol (Cytotec) 25 mcg VAG ONETIME ONE Stop: 08/27/19 01:01 Last Admin: 08/27/19 01:03 Dose: 25 mcg Morphine Sulfate (Duramorph Pf) Confirm Administered Dose 1 mg .ROUTE .STK-MED ONE Stop: 08/27/19 23:17 Nalbuphine HCl (Nubain) 10 mg IVPUSH Q2H PRN PRN Reason: Pain Last Admin: 08/27/19 10:01 Dose: 10 mg Ondansetron HCl (Zofran) 4 mg IVPUSH Q4H PRN PRN Reason: Nausea/Vomiting Ondansetron HCl (Zofran) Confirm Administered Dose 8 mg .ROUTE .STK-MED ONE Stop: 08/28/19 00:00 Oxytocin (Pitocin) Confirm Administered Dose 10 unit .ROUTE .STK-MED ONE Stop: 08/27/19 23:54 Phenylephrine HCl (Mian-Synephrine) Confirm Administered Dose 10 mg .ROUTE .STK- MED ONE Stop: 08/27/19 23:51 Sodium Chloride (Saline Flush) 10 ml FLUSH ASDIRECTED PRN PRN Reason: Keep Vein Open - Infant Interaction Disposition, : in Room with Family Interaction: Holding Infant Infant Feeding: Attempted ; Nursed Fair/Poor Support Person: - Recovery Exam Fundal Tone: Firm Fundal Level: At Umbilicus Fundal Placement: Midline Lochia Amount: Small Lochia Color: Rubra/Red Perineum Description: Intact, Minimal Bruising/Swelling Bladder Status: Indwelling Catheter in Place Urinary Elimination: Indwelling Catheter - Exam General: Alert, Oriented, Cooperative Lungs: Clear to Auscultation, Normal Respiratory Effort Cardiovascular: Regular Rate, Regular Rhythm GI/Abdominal Exam: Soft, Tender (appropriate) Extremities: Normal Inspection Skin: Warm, Dry, Intact Wound/Incisions: Healing Well, No Drainage - Problem List & Annotations (1) 37 weeks gestation of SNOMED Code(s): 87930194 Code(s): Z3A.37 - 37 WEEKS GESTATION OF Status: Acute Current Visit: Yes (2) Cholestasis during SNOMED Code(s): 850445034 Code(s): O26.619 - LIVER AND BILIARY TRACT DISORD IN , UNSP TRIMESTER; K83.1 - OBSTRUCTION OF BILE DUCT Status: Acute Current Visit: Yes Qualifiers: Trimester: third trimester Qualified Code(s): O26.613 - Liver and biliary tract disorders in , third trimester; K83.1 - Obstruction of bile duct - Problem List Review Problem List Initiated/Reviewed/Updated: Yes - My Orders Last 24 Hours: My Active Orders 08/27/19 22:53 Procedure Site Prep Instruct [RC] ASDIRECTED Verify Patient Consent Obtain [RC] PER UNIT ROUTINE 08/28/19 01:30 Clindamycin Phosphate in D5W [Cleocin in D5W] 900 mg Premix Bag 1 bag IV Q8H 08/28/19 02:01 Activity as Tolerated [RC] .Routine Antiembolic Devices [RC] PER UNIT ROUTINE Communication Order [RC] PER UNIT ROUTINE Intake and Output [RC] Q4H Notify Provider Intake and Out [RC] ASDIRECTED RT Incentive Spirometry [RC] Q2HWA Vital Signs [RC] Q1HR Acetaminophen/oxyCODONE [Percocet 325-5 MG] 1 tab PO Q4H PRN Acetaminophen/oxyCODONE [Percocet 325-5 MG] 2 tab PO Q4H PRN Docusate Sodium [Colace] 100 mg PO Q12H PRN diphenhydrAMINE [Benadryl] 25 mg IVPUSH Q6H PRN Assess Lochia [WOMSER] Per Unit Routine Assess Uterine Involution [WOMSER] Per Unit Routine Breast Pump [WOMSER] Per Unit Routine Peripheral IV Discontinue [OM.PC] Routine Sequential Compression Device [OM.PC] Per Unit Routine 08/28/19 06:30 Ketorolac [Toradol] 30 mg IVPUSH Q6H 08/28/19 09:00 Ampicillin 2 gm Sodium Chloride 0.9% [Normal Saline] 100 ml IV Q6H 08/28/19 13:15 Lactated Ringers [Ringers, Lactated] 1,000 ml IV ASDIRECTED 08/28/19 Breakfast Regular Diet [DIET] 08/29/19 00:12 Urinary Catheter Removal [RC] Per Unit Routine 08/29/19 01:00 Ibuprofen [Motrin] 600 mg PO Q6H PRN - Assessment Assessment:: POD#1 - Plan Plan:: \ * Routine cares * Breast feeding * CBC this PM, 12 hrs after * Discharge pending clinical course
[2019-08-29] MEDS ORDERED: Lidocaine 2% with EPINEPHrine 1:200,000 20 ML SDV ONE
[2019-08-29] MEDS ORDERED: Bupivacaine 0.25% 10 ML SDV ONE
[2019-08-29] MEDS ORDERED: Ibuprofen 600 MG Tab PO PRN (01:00)
[2019-08-29] MEDS: Acetaminophen/oxyCODONE 325-5 MG Tab PO PRN ×4 (05:03→22:03)
--- NOTE | 2019-08-29 07:19 | PCM.PNPP ---
- General Info Date of Service: 08/29/19 Functional Status: Reports: Pain Controlled, Tolerating Diet, Ambulating - Review of Systems General: Reports: No Symptoms Pulmonary: Reports: No Symptoms Cardiovascular: Reports: No Symptoms Gastrointestinal: Reports: No Symptoms Genitourinary: Reports: No Symptoms Musculoskeletal: Reports: No Symptoms Neurological: Reports: No Symptoms - Patient Data Vital Signs - Most Recent: Last Vital Signs Temp 36.9 C 08/29/19 03:00 Pulse 105 H 08/29/19 03:00 Resp 18 08/29/19 03:00 BP 117/68 08/29/19 03:00 Pulse Ox 99 08/29/19 03:00 Weight - Most Recent: 119.748 kg I&O - Last 24 Hours: Intake & Output 08/28/19 08/29/19 08/29/19 22:59 06:59 14:59 Intake Total 2500 Output Total 345 600 Balance 2155 -600 Lab Results - Last 24 Hours: Laboratory Results - last 24 hr 08/28/19 08/28/19 08/28/19 Range/Units 15:11 22:10 22:10 WBC 16.84 H 16.70 H (3.98-10.04) K/mm3 RBC 3.49 L 3.42 L (3.98-5.22) M/mm3 Hgb 9.6 L D 9.5 L (11.2-15.7) gm/dl Hct 29.6 L 29.1 L (34.1-44.9) % MCV 84.8 85.1 (79.4-94.8) fl MCH 27.5 27.8 (25.6-32.2) pg MCHC 32.4 32.6 (32.2-35.5) g/dl RDW Std Deviation 42.7 42.9 (36.4-46.3) fL Plt Count 260 277 (182-369) K/mm3 MPV 10.0 10.0 (9.4-12.3) fl Sodium 138 (136-145) mEq/L Potassium 3.5 (3.5-5.1) mEq/L Chloride 105 (98-107) mEq/L Carbon Dioxide 21 (21-32) mEq/L Anion Gap 15.5 H (5-15) BUN 14 (7-18) mg/dL Creatinine 1.0 (0.55-1.02) mg/dL Est Cr Clr Drug Dosing 67.43 mL/min Estimated GFR (MDRD) > 60 (>60) mL/min BUN/Creatinine Ratio 14.0 (14-18) Glucose 111 H (74-106) mg/dL Calcium 8.1 L (8.5-10.1) mg/dL Med Orders - Current: Current Medications Diphenhydramine HCl (Benadryl) 25 mg IVPUSH Q6H PRN PRN Reason: Itching or Nausea Last Admin: 08/28/19 09:08 Dose: 50 mg Docusate Sodium (Colace) 100 mg PO Q12H PRN PRN Reason: Constipation Lactated Ringer's (Ringers, Lactated) 1,000 mls @ 500 mls/hr IV ASDIRECTED [facility] Last Admin: 08/28/19 13:00 Dose: 500 mls/hr Lactated Ringer's (Ringers, Lactated) 1,000 mls @ 500 mls/hr IV ASDIRECTED [facility] Last Admin: 08/28/19 18:16 Dose: 500 mls/hr Lactated Ringer's (Ringers, Lactated) 1,000 mls @ 150 mls/hr IV ASDIRECTED [facility] Oxycodone/Acetaminophen (Percocet 325-5 Mg) 1 tab PO Q4H PRN PRN Reason: Pain (moderate 4-6) Oxycodone/Acetaminophen (Percocet 325-5 Mg) 2 tab PO Q4H PRN PRN Reason: Pain (severe 7-10) Last Admin: 08/29/19 05:03 Dose: 2 tab Discontinued Medications Acetaminophen (Tylenol) 650 mg PO Q4H PRN PRN Reason: Pain (Mild 1-3) and fever Calcium Carbonate/Glycine (Tums) 1,000 mg PO Q2H PRN PRN Reason: Indigestion Cefazolin Sodium (Ancef) Confirm Administered Dose 3 gm .ROUTE .STK-MED ONE Stop: 08/27/19 23:04 Citric Acid/Sodium Citrate (Bicitra Solution) 30 ml PO ONETIME ONE Stop: 08/27/19 22:54 Last Admin: 08/27/19 22:55 Dose: 30 ml Citric Acid/Sodium Citrate (Bicitra Solution) Confirm Administered Dose 30 ml .ROUTE .STK-MED ONE Stop: 08/27/19 22:56 Last Admin: 08/28/19 01:48 Dose: Not Given Diphenhydramine HCl (Benadryl) 25 mg IVPUSH Q6H PRN PRN Reason: pruritis Ephedrine Sulfate (Ephedrine Sulfate) 5 mg IVPUSH ASDIRECTED PRN PRN Reason: Hypotension Fentanyl (Sublimaze) 100 mcg EPIDUR Q3H PRN PRN Reason: Pain Last Admin: 08/27/19 10:30 Dose: 100 mcg Fentanyl/Bupivacaine HCl (Fentanyl/Bupivacaine/Ns 2 Mcg-0.125% 100 Ml) 100 ml EPIDUR ASDIRECTED PRN PRN Reason: Pain Last Admin: 08/27/19 19:15 Dose: 100 ml Gentamicin Sulfate (Pharmacy To Dose - Gentamicin) 1 dose .XX ASDIRECTED [facility] Stop: 08/28/19 01:16 Gentamicin Sulfate (Gentamicin) Confirm Administered Dose 80 mg .ROUTE .STK-MED ONE Stop: 08/28/19 03:21 Last Admin: 08/28/19 03:37 Dose: Not Given Lactated Ringer's (Ringers, Lactated) 1,000 mls @ 40 mls/hr IV ASDIRECTED [facility] Last Admin: 08/27/19 11:06 Dose: 40 mls/hr Oxytocin/Lactated Ringer's (Pitocin In Lr 10 Units/1,000 Ml) 10 unit in 1,000 mls @ 12 mls/hr IV TITRATE [facility]; Protocol Last Titration: 08/27/19 17:47 Dose: 12 munits/min, 72 mls/hr Oxytocin/Lactated Ringer's (Pitocin In Lr 10 Units/1,000 Ml) 10 unit in 1,000 mls @ 500 mls/hr IV .CONTINUOUS [facility] Azithromycin 500 mg/ Sodium (Chloride) 250 mls @ 250 mls/hr IV ONETIME ONE Stop: 08/27/19 23:52 Last Admin: 08/28/19 01:48 Dose: Not Given Cefazolin Sodium/Dextrose 2 gm (/ Premix) 50 mls @ 100 mls/hr IV ONETIME ONE Stop: 08/27/19 23:22 Last Admin: 08/28/19 01:49 Dose: Not Given Cefazolin Sodium/Dextrose 1 gm (/ Premix) 50 mls @ 100 mls/hr IV ONETIME ONE Stop: 08/27/19 23:22 Last Admin: 08/28/19 01:49 Dose: Not Given Lactated Ringer's (Ringers, Lactated) Confirm Administered Dose 1,000 mls @ as directed .ROUTE .STK-MED ONE Stop: 08/27/19 23:18 Lactated Ringer's (Ringers, Lactated) Confirm Administered Dose 1,000 mls @ as directed .ROUTE .STK-MED ONE Stop: 08/27/19 23:53 Clindamycin Phosphate 900 mg/ (Premix) 50 mls @ 50 mls/hr IV Q8H [facility] Stop: 08/28/19 19:00 Last Admin: 08/28/19 17:12 Dose: 50 mls/hr Ampicillin Sodium 2 gm/ Sodium (Chloride) 100 mls @ 200 mls/hr IV Q6H [facility] Last Admin: 08/28/19 01:44 Dose: 200 mls/hr Gentamicin Sulfate 600 mg/ (Sodium Chloride) 115 mls @ 115 mls/hr IV ONETIME ONE Stop: 08/28/19 03:29 Last Admin: 08/28/19 03:36 Dose: 115 mls/hr Dextrose/Lactated Ringer's (Dextrose 5%-Lactated Ringers) 1,000 mls @ 125 mls/ hr IV ASDIRECTED [facility] Stop: 08/28/19 10:00 Ampicillin Sodium 2 gm/ Sodium (Chloride) 100 mls @ 200 mls/hr IV Q6H [facility] Stop: 08/28/19 23:00 Last Admin: 08/28/19 20:08 Dose: 200 mls/hr Lactated Ringer's (Ringers, Lactated) 500 mls @ 500 mls/hr IV ONETIME ONE Stop: 08/28/19 22:59 Last Admin: 08/28/19 22:24 Dose: 500 mls/hr Ibuprofen (Motrin) 600 mg PO Q6H PRN PRN Reason: mild pain or fever Ketorolac Tromethamine (Toradol) 30 mg IVPUSH Q6H [facility] Stop: 08/28/19 18:31 Last Admin: 08/28/19 18:24 Dose: 30 mg Meperidine HCl (Meperidine) Confirm Administered Dose 50 mg .ROUTE .STK-MED ONE Stop: 08/27/19 23:49 Methylergonovine Maleate (Methergine) Confirm Administered Dose 0.2 mg .ROUTE .STK-MED ONE Stop: 08/27/19 23:34 Last Admin: 08/27/19 23:40 Dose: 0.2 mg Metoclopramide HCl (Reglan) 10 mg IVPUSH ONETIME ONE Stop: 08/27/19 22:54 Last Admin: 08/27/19 22:55 Dose: 10 mg Metoclopramide HCl (Reglan) Confirm Administered Dose 10 mg .ROUTE .STK-MED ONE Stop: 08/27/19 22:57 Last Admin: 08/28/19 01:49 Dose: Not Given Midazolam HCl (Versed 1 Mg/Ml) Confirm Administered Dose 2 mg .ROUTE .STK-MED ONE Stop: 08/27/19 23:29 Miscellaneous Medication (Phenylephrine 1 Mg/10 Ml-Ns) Confirm Administered Dose 1 mg IV .STK-MED ONE Stop: 08/27/19 23:13 Miscellaneous Medication (Phenylephrine 1 Mg/10 Ml-Ns) Confirm Administered Dose 1 mg IV .STK-MED ONE Stop: 08/27/19 23:41 Misoprostol (Cytotec) 25 mcg VAG Q4H PRN PRN Reason: cervical ripening Last Admin: 08/26/19 20:59 Dose: 25 mcg Misoprostol (Cytotec) 25 mcg VAG ONETIME ONE Stop: 08/27/19 01:01 Last Admin: 08/27/19 01:03 Dose: 25 mcg Morphine Sulfate (Duramorph Pf) Confirm Administered Dose 1 mg .ROUTE .STK-MED ONE Stop: 08/27/19 23:17 Nalbuphine HCl (Nubain) 10 mg IVPUSH Q2H PRN PRN Reason: Pain Last Admin: 08/27/19 10:01 Dose: 10 mg Ondansetron HCl (Zofran) 4 mg IVPUSH Q4H PRN PRN Reason: Nausea/Vomiting Ondansetron HCl (Zofran) Confirm Administered Dose 8 mg .ROUTE .STK-MED ONE Stop: 08/28/19 00:00 Oxytocin (Pitocin) Confirm Administered Dose 10 unit .ROUTE .STK-MED ONE Stop: 08/27/19 23:54 Phenylephrine HCl (Mian-Synephrine) Confirm Administered Dose 10 mg .ROUTE .STK- MED ONE Stop: 08/27/19 23:51 Sodium Chloride (Saline Flush) 10 ml FLUSH ASDIRECTED PRN PRN Reason: Keep Vein Open - Infant Interaction Disposition, : in Room with Family Interaction: Holding Infant Feeding: Attempted ; Nursed Fair/Poor Support Person: - Recovery Exam Fundal Tone: Firm Fundal Level: At Umbilicus Fundal Placement: Midline Lochia Amount: Small Lochia Color: Rubra/Red Perineum Description: Intact, Minimal Bruising/Swelling Bladder Status: Indwelling Catheter in Place Urinary Elimination: Indwelling Catheter - Exam General: Alert, Oriented, Cooperative Lungs: Clear to Auscultation, Normal Respiratory Effort Cardiovascular: Regular Rate, Regular Rhythm GI/Abdominal Exam: Soft, Non-Tender Extremities: Normal Inspection Skin: Warm, Dry, Intact Wound/Incisions: Healing Well, No Drainage - Problem List & Annotations (1) 37 weeks gestation of SNOMED Code(s): 42959766 Code(s): Z3A.37 - 37 WEEKS GESTATION OF Status: Acute Current Visit: Yes (2) Cholestasis during SNOMED Code(s): 045980635 Code(s): O26.619 - LIVER AND BILIARY TRACT DISORD IN , UNSP TRIMESTER; K83.1 - OBSTRUCTION OF BILE DUCT Status: Acute Current Visit: Yes Qualifiers: Trimester: third trimester Qualified Code(s): O26.613 - Liver and biliary tract disorders in , third trimester; K83.1 - Obstruction of bile duct (3) Failure of descent in labor, delivered, current hospitalization SNOMED Code(s): 337890530, 775644930 Code(s): O62.2 - OTHER UTERINE INERTIA Status: Acute Current Visit: Yes (4) Non-reassuring status SNOMED Code(s): 194563741 Code(s): HRN8628 - Status: Acute Current Visit: Yes (5) S/P primary low transverse SNOMED Code(s): 848051559, 20636019, 631633680, 698522566, 731914529 Code(s): Z98.891 - HISTORY OF UTERINE SCAR FROM PREVIOUS SURGERY Status: Acute Current Visit: Yes (6) Chorioamnionitis SNOMED Code(s): 76864607 Code(s): O41.1290 - CHORIOAMNIONITIS, UNSP TRIMESTER, NOT APPLICABLE OR UNSP Status: Acute Current Visit: Yes Qualifiers: Fetus number: single or unspecified fetus Trimester: third trimester Qualified Code(s): O41.1230 - Chorioamnionitis, third trimester, not applicable or unspecified (7) Acute kidney injury SNOMED Code(s): 11809593, 96607242 Code(s): N17.9 - ACUTE KIDNEY FAILURE, UNSPECIFIED Status: Acute Current Visit: Yes - Problem List Review Problem List Initiated/Reviewed/Updated: Yes - My Orders Last 24 Hours: My Active Orders 08/28/19 13:15 Lactated Ringers [Ringers, Lactated] 1,000 ml IV ASDIRECTED 08/28/19 18:15 Lactated Ringers [Ringers, Lactated] 1,000 ml IV ASDIRECTED 08/28/19 23:00 Lactated Ringers [Ringers, Lactated] 1,000 ml IV ASDIRECTED 08/28/19 Breakfast Regular Diet [DIET] 08/29/19 00:12 Urinary Catheter Removal [RC] Per Unit Routine - Assessment Assessment:: POD#2 - Plan Plan:: \ Yesterday throughout day UOP noted to be low. Given several boluses throughout day and PM (about 2 L additional). Labs done last night and Creatinine was 1.0 (up from baseline of 0.6). Repeat CBC last night stable. Suspicion for [place] from gentamicin dose given for fever/chorioamnionitis. Now, however, with improved UOP of 100 cc/hr. Will remove catheter and continue to monitor closely. S/p 24 hours of Ampicillin, Gentamicin, an Clindamycin. No further antibiotics planned Routine cares Breast feeding Discharge home tomorrow
[2019-08-29] MEDS: Docusate Sodium 100 MG Cap PO PRN (21:06)
[2019-08-30] MEDS: Acetaminophen/oxyCODONE 325-5 MG Tab PO PRN ×3 (01:57→10:16)
--- NOTE | 2019-08-30 09:10 | PCM.SN.2 ---
- Free Text/Narrative Note: Post Operative Progress Note POD #3 Subjective: Doing well overall. Ambulating without difficulty. Lochia minimal. Voiding without difficulty. Passing flatus and having small bowel movements. Tolerating regular diet without nausea or vomiting. Pain controlled with oral medications. Breast-feeding with minimal difficulty. Objective: Vitals: Vital Signs - 24 hr //12 09//08/30/19 14:46 21:00 01:55 Temperature 36.7 C 36.6 C Temperature [ 36.2 C Temporal] Pulse, 99 91 Peripheral Pulse, 88 Peripheral [ Pulse Oximetry] Respiratory 14 16 16 Rate Blood Pressure 109/56 L 129/48 L Blood Pressure 128/72 [Upper Arm] O2 Sat by Pulse 97 99 99 Oximetry Physical Exam General: Alert and oriented, no acute distress Lungs: Clear to auscultation bilaterally Heart: Regular rate and rhythm Abdomen: Soft, minimal appropriate tenderness, non-distended, fundus midline, nontender and at the umbilicus Incision: Clean, dry and intact, no erythema, bleeding or drainage with skin glue in place Extremities: 1+ edema in bilateral lower extremities to knees Labs: Laboratory Results - last 24 hr /05/15 Range/Units 10:38 Bile Acids 3.3 (0.0-10.0) umol/L ASSESSMENT: 28-year-old female -0-0-1 s/p primary section POD #3 for failed vacuum extractor delivery, complicated by chorioamnionitis diagnosed after delivery and treated with antibiotics for 24 hours after delivery, acute kidney injury following gentamicin dosing, suspected cholestasis of and obesity PLAN: Doing well Breast-feeding with minimal difficulty. Assist as needed Incision healing well. Continue to keep clean and dry. Lochia minimal. Continue to monitor for appropriate lochia. Continue routine post-operative care Discharge home today Patricio Peña MD 9:08 AM 08/30/2019
--- NOTE | 2019-08-30 09:34 | PCM.DCSUM1 ---
Discharge Summary - Hospital Course Free Text/Narrative:: Date of Surgery/Procedure: 08/28/19 Operative Procedure(s): Primary Low transverse Findings: Baby boy in OP presentation. Weight of 3.38 kg. Apgars of 7 & 9. Grossly normal appearance of the uterus, fallopian tubes, and ovaries. Pre Op Diagnosis: 37 weeks. Presumed cholestasis of (bile acids pending). NRFS/FTD Post-Op Diagnosis: As above, OP presentation Anesthesia Technique: Epidural Primary Surgeon: Renetta Ramsay Secondary Surgeon: Timothy Irwin Anesthesia Provider: Jayjay Molina Reason Mail Distributor Was Necessary: BMI of patient. Speed/safety of procedure Pathology: Cord blood collected. Placenta discarded Fluid Replacement, Intraop: 2,500 Output, Urine Amount: 100 EBL in mLs: 800 Complications: None Condition: Good Free Text/Narrative:: The risks, benefits, indications, potential complications, and alternatives were explained to the patient and informed consent obtained. After induction of anesthesia, the patient was placed in a supine position and then draped and prepped in the usual sterile manner. A Pfannenstiel incision was made and carried down through the subcutaneous tissue to the fascia. Fascial incision was made and extended transversely. The fascia was from the underlying rectus tissue superiorly and inferiorly. The peritoneum was identified and entered. Peritoneal incision was extended longitudinally. The utero-vesical peritoneal reflection was incised transversely and the bladder flap was bluntly freed from the lower uterine segment. A low transverse uterine incision was made sharply with a scalpel and extended bluntly in a cephalocaudad direction. A baby boy was delivered from a vertex presentation with APGARS as above. After the umbilical cord was clamped and cut cord blood was obtained for evaluation. The placenta was removed intact and appeared normal. The uterus was exteriorized and cleared of clots. Unfortunately due to patient's abdomen shape and amount of subcutaneous tissue not able to visualize hysterotomy with uterus exteriorized. Placed back in the abdomen. The uterine incision was closed with running locked sutures of 0 Vicryl. Hemostasis was obtained with a second layer closure in addition to several other interrupted sutures of 0 vicryl. The infracolic gutters were cleared of blood clots. The fascia was then reapproximated with running sutures of 0 PDS. The subcutaneous tissue was irrigated with sterile warm normal saline, hemostasis obtained with cautery. This layer was also closed with a running 0 Vicryl. The skin was reapproximated with running Subcuticular 4-0 monocryl sutures. Instrument, sponge, and needle counts were correct prior the abdominal closure and at the conclusion of the case. HPI Initial Comments: Date of Surgery/Procedure: 08/28/19 Operative Procedure(s): Primary Low transverse Findings: Baby boy in OP presentation. Weight of 3.38 kg. Apgars of 7 & 9. Grossly normal appearance of the uterus, fallopian tubes, and ovaries. Pre Op Diagnosis: 37 weeks. Presumed cholestasis of (bile acids pending). NRFS/FTD Post-Op Diagnosis: As above, OP presentation Anesthesia Technique: Epidural Primary Surgeon: Renetta Ramsay Secondary Surgeon: Timothy Irwin Anesthesia Provider: Jayjay Molina Reason Mail Distributor Was Necessary: BMI of patient. Speed/safety of procedure Pathology: Cord blood collected. Placenta discarded Fluid Replacement, Intraop: 2,500 Output, Urine Amount: 100 EBL in mLs: 800 Complications: None Condition: Good Free Text/Narrative:: The risks, benefits, indications, potential complications, and alternatives were explained to the patient and informed consent obtained. After induction of anesthesia, the patient was placed in a supine position and then draped and prepped in the usual sterile manner. A Pfannenstiel incision was made and carried down through the subcutaneous tissue to the fascia. Fascial incision was made and extended transversely. The fascia was from the underlying rectus tissue superiorly and inferiorly. The peritoneum was identified and entered. Peritoneal incision was extended longitudinally. The utero-vesical peritoneal reflection was incised transversely and the bladder flap was bluntly freed from the lower uterine segment. A low transverse uterine incision was made sharply with a scalpel and extended bluntly in a cephalocaudad direction. A baby boy was delivered from a vertex presentation with APGARS as above. After the umbilical cord was clamped and cut cord blood was obtained for evaluation. The placenta was removed intact and appeared normal. The uterus was exteriorized and cleared of clots. Unfortunately due to patient's abdomen shape and amount of subcutaneous tissue not able to visualize hysterotomy with uterus exteriorized. Placed back in the abdomen. The uterine incision was closed with running locked sutures of 0 Vicryl. Hemostasis was obtained with a second layer closure in addition to several other interrupted sutures of 0 vicryl. The infracolic gutters were cleared of blood clots. The fascia was then reapproximated with running sutures of 0 PDS. The subcutaneous tissue was irrigated with sterile warm normal saline, hemostasis obtained with cautery. This layer was also closed with a running 0 Vicryl. The skin was reapproximated with running Subcuticular 4-0 monocryl sutures. Instrument, sponge, and needle counts were correct prior the abdominal closure and at the conclusion of the case. Brief History: Date of Surgery/Procedure: 08/28/19. Operative Procedure(s): Primary Low transverse . Findings: Baby boy in OP presentation. Weight of 3.38 kg. Apgars of 7 & 9. Grossly normal appearance of the uterus, fallopian tubes, and ovaries. Pre Op Diagnosis: 37 weeks. Presumed cholestasis of (bile acids pending). NRFS/FTD. Post-Op Diagnosis: As above, OP presentation. Anesthesia Technique: Epidural. Primary Surgeon: Renetta Ramsay. Secondary Surgeon: Timothy Irwin. Anesthesia Provider : Jayjay Molina. Reason Mail Distributor Was Necessary: BMI of patient. Speed/ safety of procedure. Pathology: Cord blood collected. Placenta discarded. Fluid Replacement, Intraop: 2,500. Output, Urine Amount: 100. EBL in mLs: 800. Complications: None. Condition: Good. Free Text/Narrative:: The risks, benefits, indications, potential complications, and alternatives were explained to the patient and informed consent obtained. After induction of anesthesia, the patient was placed in a supine position and then draped and prepped in the usual sterile manner. A Pfannenstiel incision was made and carried down through the subcutaneous tissue to the fascia. Fascial incision was made and extended transversely. The fascia was from the underlying rectus tissue superiorly and inferiorly. The peritoneum was identified and entered. Peritoneal incision was extended longitudinally. The utero-vesical peritoneal reflection was incised transversely and the bladder flap was bluntly freed from the lower uterine segment. A low transverse uterine incision was made sharply with a scalpel and extended bluntly in a cephalocaudad direction. A baby boy was delivered from a vertex presentation with APGARS as above. After the umbilical cord was clamped and cut cord blood was obtained for evaluation. The placenta was removed intact and appeared normal. The uterus was exteriorized and cleared of clots. Unfortunately due to patient's abdomen shape and amount of subcutaneous tissue not able to visualize hysterotomy with uterus exteriorized. Placed back in the abdomen. The uterine incision was closed with running locked sutures of 0 Vicryl. Hemostasis was obtained with a second layer closure in addition to several other interrupted sutures of 0 vicryl. The infracolic gutters were cleared of blood clots. The fascia was then reapproximated with running sutures of 0 PDS. The subcutaneous tissue was irrigated with sterile warm normal saline, hemostasis obtained with cautery. This layer was also closed with a running 0 Vicryl. The skin was reapproximated with running Subcuticular 4-0 monocryl sutures. Instrument, sponge, and needle counts were correct prior the abdominal closure and at the conclusion of the case. Diagnosis: Stroke: No - Discharge Data Discharge Date: 08/30/19 Discharge Disposition: Home, Self-Care 01 Condition: Good - Referral to Home Health Primary Care Physician: Renetta Ramsay MD - Discharge Diagnosis/Problem(s) (1) 37 weeks gestation of SNOMED Code(s): 89697065 ICD Code: Z3A.37 - 37 WEEKS GESTATION OF Status: Acute Current Visit: Yes (2) Acute kidney injury SNOMED Code(s): 19563464, 29816674 ICD Code: N17.9 - ACUTE KIDNEY FAILURE, UNSPECIFIED Status: Acute Current Visit: Yes (3) Cholestasis during SNOMED Code(s): 738521682 ICD Code: O26.619 - LIVER AND BILIARY TRACT DISORD IN , UNSP TRIMESTER; K83.1 - OBSTRUCTION OF BILE DUCT Status: Acute Current Visit: Yes Qualifiers: Trimester: third trimester Qualified Code(s): O26.613 - Liver and biliary tract disorders in , third trimester; K83.1 - Obstruction of bile duct (4) Chorioamnionitis SNOMED Code(s): 17916626 ICD Code: O41.1290 - CHORIOAMNIONITIS, UNSP TRIMESTER, NOT APPLICABLE OR UNSP Status: Acute Current Visit: Yes Qualifiers: Fetus number: single or unspecified fetus Trimester: third trimester Qualified Code(s): O41.1230 - Chorioamnionitis, third trimester, not applicable or unspecified (5) Failure of descent in labor, delivered, current hospitalization SNOMED Code(s): 722137242, 078478442 ICD Code: O62.2 - OTHER UTERINE INERTIA Status: Acute Current Visit: Yes (6) S/P primary low transverse SNOMED Code(s): 939256154, 44049027, 809387624, 902344421, 964800308 ICD Code: Z98.891 - HISTORY OF UTERINE SCAR FROM PREVIOUS SURGERY Status: Acute Current Visit: Yes - Patient Summary/Data Operative Procedure(s) Performed: Primary Low transverse Complications: Cholestasis of , failed vacuum extractor delivery, chorioamnionitis and acute kidney injury from gentamicin for treatment of chorioamnionitis Consults: None Hospital Course: Tierney Dickens was admitted for medically indicated induction of labor in the setting of suspected cholestasis of . On admission her cervix was closed. She was GBS negative.she was started on Cytotec vaginally for cervical ripening and received a total of 4 doses. She was given an epidural for anesthesia. She was started on Pitocin for augmentation of labor. She had a transcervical Blanton bulb placed for mechanical dilation of the cervix. She had artificial rupture of membranes with clear fluid. She had an intrauterine pressure catheter and scalp electrode placed for ongoing monitoring of the infant. She progressed to complete and began pushing. During pushing patient was having late decelerations and vacuum extractor delivery attempted. Her bladder was emptied. The vacuum extractor was applied and over the course of 4 contractions she had minimal descent and felt to have unsuccessful vacuum extractor delivery. Decision was made to proceed to section. During pushing she was noted to have a mild fever with temperature of 100.0 F while pushing. She was taken back to the OR and given dosing through the epidural for anesthesia. She was given Ancef and azithromycin for antibiotic prophylaxis. She was prepped and draped in the normal fashion. On 08/27/2019 she had a primary delivery of a live male at 23:22. Apgars of 7 and 9. Weight of 3380 g (7 pounds 7.2 ounces). She was closed in a normal fashion. There were no complications with the procedure. Please see the operative report for full details. Her post operative course was complicated by a fever in the PACU. Decision was to continue antibiotics for 24 hours after delivery. She was given ampicillin, clindamycin and gentamicin for treatment of suspected chorioamnionitis. During POD #1 she had minimal urine output in the Blanton catheter and was given multiple IV fluid boluses with minimal improvement in urine output. Her labs were checked and her hemoglobin was noted to be normal at 9.5 but her creatinine had gone up to 1.0. Suspected to have mild acute kidney injury secondary to the gentamicin for antibiotic treatment. She was continue to monitor throughout POD #1 into POD #2 and she did have increased urine output in the morning of POD #2. The Blanton catheter was removed and she continued to have good urine output throughout the day. Her pain was well controlled and she had minimal lochia. She was ambulating, tolerating a regular diet and voiding normally. She was passing flatus and has had some small bowel movements. She was breast feeding without difficulty. She was afebrile starting in the morning on POD #1 and was afebrile throughout the remainder of her stay. Her hematocrit was 29.1 on POD #1. She desired to be discharged home on the morning of POD #3. Her blood type is O+. - Patient Instructions Diet: Regular Diet as Tolerated Activity: Apply Ice, As Tolerated, No Lifting Over 20 Pounds Activity, Other: Nothing in the vagina for 6 weeks Driving: Do Not Drive (While taking narcotic medications are having significant pain) Showering/Bathing: May Shower Wound/Incision Care: Keep Operative Site/Wound Site Clean and Dry Notify Provider of: Fever, Increased Pain, Swelling and Redness, Drainage, Nausea and/or Vomiting Other/Special Instructions: Please contact your physician's office if you note any bleeding or pus coming from the abdominal incision. Please contact your physician's office if you have heavy vaginal bleeding enough to soak a pad in less than an hour for several hours. Monitor for any signs of an infection in the breasts with severe pain or redness of the breast. - Discharge Plan *PRESCRIPTION DRUG MONITORING PROGRAM REVIEWED*: Yes *COPY OF PRESCRIPTION DRUG MONITORING REPORT IN PATIENT ARA: No (No reports available) Prescriptions/Med Rec: Acetaminophen/oxyCODONE [Percocet 325-5 MG] 1 - 2 tab PO Q6H PRN #30 tablet PRN Reason: Pain Home Medications: Home Meds Ondansetron [Zofran ODT] 1 tab PO Q8H PRN #10 tab.dis 05/15/18 [Rx] Calcium Carbonate [Tums] 500 mg PO Q2HR PRN 08/26/19 [History] Cyclobenzaprine [Flexeril] 5 mg PO TID 08/26/19 [History] Folic Acid 0.4 mg PO DAILY 08/26/19 [History] Omeprazole 20 mg PO DAILY 08/26/19 [History] Acetaminophen/oxyCODONE [Percocet 325-5 MG] 1 - 2 tab PO Q6H PRN #30 tablet 09/12 [Rx] Docusate Sodium [Colace] 100 mg PO Q12H PRN cap 08/30/19 [Rx] Referrals: Renetta Ramsay MD [Primary Care Provider] - (Follow-up in 2 weeks for routine postoperative visit or earlier as needed.) - Discharge Summary/Plan Comment DC Time >30 min.: No - Patient Data Vitals - Most Recent: Last Vital Signs Temp 36.6 C 08/30/19 01:55 Pulse 91 08/30/19 01:55 Resp 16 08/30/19 01:55 BP 129/48 L 08/30/19 01:55 Pulse Ox 99 08/30/19 01:55 Weight - Most Recent: 119.748 kg I&O - Last 24 hours: Intake & Output 08/29/19 08/30/19 08/30/19 22:59 06:59 14:59 Output Total 1300 Balance -1300 Lab Results - Last 24 hrs: Laboratory Results - last 24 hr 08/26/19 Range/Units 10:38 Bile Acids 3.3 (0.0-10.0) umol/L Med Orders - Current: Current Medications Diphenhydramine HCl (Benadryl) 25 mg IVPUSH Q6H PRN PRN Reason: Itching or Nausea Last Admin: 08/28/19 09:08 Dose: 50 mg Docusate Sodium (Colace) 100 mg PO Q12H PRN PRN Reason: Constipation Last Admin: 08/29/19 21:06 Dose: 100 mg Lactated Ringer's (Ringers, Lactated) 1,000 mls @ 500 mls/hr IV ASDIRECTED [facility] Last Admin: 08/28/19 13:00 Dose: 500 mls/hr Lactated Ringer's (Ringers, Lactated) 1,000 mls @ 500 mls/hr IV ASDIRECTED [facility] Last Admin: 08/28/19 18:16 Dose: 500 mls/hr Lactated Ringer's (Ringers, Lactated) 1,000 mls @ 150 mls/hr IV ASDIRECTED [facility] Oxycodone/Acetaminophen (Percocet 325-5 Mg) 1 tab PO Q4H PRN PRN Reason: Pain (moderate 4-6) Last Admin: 08/29/19 22:03 Dose: 1 tab Oxycodone/Acetaminophen (Percocet 325-5 Mg) 2 tab PO Q4H PRN PRN Reason: Pain (severe 7-10) Last Admin: 08/30/19 06:40 Dose: 2 tab Discontinued Medications Acetaminophen (Tylenol) 650 mg PO Q4H PRN PRN Reason: Pain (Mild 1-3) and fever Bupivacaine HCl (Sensorcaine-Mpf 0.25%) 10 ml .ROUTE .STK-MED ONE Stop: 08/29/19 00:01 Calcium Carbonate/Glycine (Tums) 1,000 mg PO Q2H PRN PRN Reason: Indigestion Cefazolin Sodium (Ancef) Confirm Administered Dose 3 gm .ROUTE .STK-MED ONE Stop: 08/27/19 23:04 Citric Acid/Sodium Citrate (Bicitra Solution) 30 ml PO ONETIME ONE Stop: 08/27/19 22:54 Last Admin: 08/27/19 22:55 Dose: 30 ml Citric Acid/Sodium Citrate (Bicitra Solution) Confirm Administered Dose 30 ml .ROUTE .STK-MED ONE Stop: 08/27/19 22:56 Last Admin: 08/28/19 01:48 Dose: Not Given Diphenhydramine HCl (Benadryl) 25 mg IVPUSH Q6H PRN PRN Reason: pruritis Ephedrine Sulfate (Ephedrine Sulfate) 5 mg IVPUSH ASDIRECTED PRN PRN Reason: Hypotension Fentanyl (Sublimaze) 100 mcg EPIDUR Q3H PRN PRN Reason: Pain Last Admin: 08/27/19 10:30 Dose: 100 mcg Fentanyl/Bupivacaine HCl (Fentanyl/Bupivacaine/Ns 2 Mcg-0.125% 100 Ml) 100 ml EPIDUR ASDIRECTED PRN PRN Reason: Pain Last Admin: 08/27/19 19:15 Dose: 100 ml Gentamicin Sulfate (Pharmacy To Dose - Gentamicin) 1 dose .XX ASDIRECTED [facility] Stop: 08/28/19 01:16 Gentamicin Sulfate (Gentamicin) Confirm Administered Dose 80 mg .ROUTE .STK-MED ONE Stop: 08/28/19 03:21 Last Admin: 08/28/19 03:37 Dose: Not Given Lactated Ringer's (Ringers, Lactated) 1,000 mls @ 40 mls/hr IV ASDIRECTED [facility] Last Admin: 08/27/19 11:06 Dose: 40 mls/hr Oxytocin/Lactated Ringer's (Pitocin In Lr 10 Units/1,000 Ml) 10 unit in 1,000 mls @ 12 mls/hr IV TITRATE [facility]; Protocol Last Titration: 08/27/19 17:47 Dose: 12 munits/min, 72 mls/hr Oxytocin/Lactated Ringer's (Pitocin In Lr 10 Units/1,000 Ml) 10 unit in 1,000 mls @ 500 mls/hr IV .CONTINUOUS [place] Azithromycin 500 mg/ Sodium (Chloride) 250 mls @ 250 mls/hr IV ONETIME ONE Stop: 08/27/19 23:52 Last Admin: 08/28/19 01:48 Dose: Not Given Cefazolin Sodium/Dextrose 2 gm (/ Premix) 50 mls @ 100 mls/hr IV ONETIME ONE Stop: 08/27/19 23:22 Last Admin: 08/28/19 01:49 Dose: Not Given Cefazolin Sodium/Dextrose 1 gm (/ Premix) 50 mls @ 100 mls/hr IV ONETIME ONE Stop: 08/27/19 23:22 Last Admin: 08/28/19 01:49 Dose: Not Given Lactated Ringer's (Ringers, Lactated) Confirm Administered Dose 1,000 mls @ as directed .ROUTE .STK-MED ONE Stop: 08/27/19 23:18 Lactated Ringer's (Ringers, Lactated) Confirm Administered Dose 1,000 mls @ as directed .ROUTE .STK-MED ONE Stop: 08/27/19 23:53 Clindamycin Phosphate 900 mg/ (Premix) 50 mls @ 50 mls/hr IV Q8H [facility] Stop: 08/28/19 19:00 Last Admin: 08/28/19 17:12 Dose: 50 mls/hr Ampicillin Sodium 2 gm/ Sodium (Chloride) 100 mls @ 200 mls/hr IV Q6H [facility] Last Admin: 08/28/19 01:44 Dose: 200 mls/hr Gentamicin Sulfate 600 mg/ (Sodium Chloride) 115 mls @ 115 mls/hr IV ONETIME ONE Stop: 08/28/19 03:29 Last Admin: 08/28/19 03:36 Dose: 115 mls/hr Dextrose/Lactated Ringer's (Dextrose 5%-Lactated Ringers) 1,000 mls @ 125 mls/ hr IV ASDIRECTED [facility] Stop: 08/28/19 10:00 Ampicillin Sodium 2 gm/ Sodium (Chloride) 100 mls @ 200 mls/hr IV Q6H [facility] Stop: 08/28/19 23:00 Last Admin: 08/28/19 20:08 Dose: 200 mls/hr Lactated Ringer's (Ringers, Lactated) 500 mls @ 500 mls/hr IV ONETIME ONE Stop: 08/28/19 22:59 Last Admin: 08/28/19 22:24 Dose: 500 mls/hr Ibuprofen (Motrin) 600 mg PO Q6H PRN PRN Reason: mild pain or fever Ketorolac Tromethamine (Toradol) 30 mg IVPUSH Q6H [facility] Stop: 08/28/19 18:31 Last Admin: 08/28/19 18:24 Dose: 30 mg Lidocaine/Epinephrine (Xylocaine-Mpf 2%-Epi 1:200,000) 20 ml .ROUTE .STK-MED ONE Stop: 08/29/19 00:01 Meperidine HCl (Meperidine) Confirm Administered Dose 50 mg .ROUTE .STK-MED ONE Stop: 08/27/19 23:49 Methylergonovine Maleate (Methergine) Confirm Administered Dose 0.2 mg .ROUTE .STK-MED ONE Stop: 08/27/19 23:34 Last Admin: 08/27/19 23:40 Dose: 0.2 mg Metoclopramide HCl (Reglan) 10 mg IVPUSH ONETIME ONE Stop: 08/27/19 22:54 Last Admin: 08/27/19 22:55 Dose: 10 mg Metoclopramide HCl (Reglan) Confirm Administered Dose 10 mg .ROUTE .STK-MED ONE Stop: 08/27/19 22:57 Last Admin: 08/28/19 01:49 Dose: Not Given Midazolam HCl (Versed 1 Mg/Ml) Confirm Administered Dose 2 mg .ROUTE .STK-MED ONE Stop: 08/27/19 23:29 Miscellaneous Medication (Phenylephrine 1 Mg/10 Ml-Ns) Confirm Administered Dose 1 mg IV .STK-MED ONE Stop: 08/27/19 23:13 Miscellaneous Medication (Phenylephrine 1 Mg/10 Ml-Ns) Confirm Administered Dose 1 mg IV .STK-MED ONE Stop: 08/27/19 23:41 Misoprostol (Cytotec) 25 mcg VAG Q4H PRN PRN Reason: cervical ripening Last Admin: 08/26/19 20:59 Dose: 25 mcg Misoprostol (Cytotec) 25 mcg VAG ONETIME ONE Stop: 08/27/19 01:01 Last Admin: 08/27/19 01:03 Dose: 25 mcg Morphine Sulfate (Duramorph Pf) Confirm Administered Dose 1 mg .ROUTE .STK-MED ONE Stop: 08/27/19 23:17 Nalbuphine HCl (Nubain) 10 mg IVPUSH Q2H PRN PRN Reason: Pain Last Admin: 08/27/19 10:01 Dose: 10 mg Ondansetron HCl (Zofran) 4 mg IVPUSH Q4H PRN PRN Reason: Nausea/Vomiting Ondansetron HCl (Zofran) Confirm Administered Dose 8 mg .ROUTE .STK-MED ONE Stop: 08/28/19 00:00 Oxytocin (Pitocin) Confirm Administered Dose 10 unit .ROUTE .STK-MED ONE Stop: 08/27/19 23:54 Phenylephrine HCl (Mian-Synephrine) Confirm Administered Dose 10 mg .ROUTE .STK- MED ONE Stop: 08/27/19 23:51 Sodium Chloride (Saline Flush) 10 ml FLUSH ASDIRECTED PRN PRN Reason: Keep Vein Open
[2019-08-30] MEDS: Docusate Sodium 100 MG Cap PO PRN (10:16)
== END 2019-08-30 12:15 | disposition home or self-care (01) | DRG 540 ==
LOC: JD.OB 09:17 → OBSVTOIN 08-27 23:22 → JD.OB 08-27 23:23
PROVIDERS: ADMIT Obstetrics & Gynecology; ATTEND Obstetrics & Gynecology
PROC: 10D00Z1 Extraction of Products of Conception, Low, Open Approach (ICD-10-PCS; principal; 2019-08-27)
PROC: 10907ZC Drainage of Amniotic Fluid, Therapeutic from Products of Conception, Via Natural or Artificial Opening (ICD-10-PCS; 2019-08-27)
PROC: 3E0P7VZ Introduction of Hormone into Female Reproductive, Via Natural or Artificial Opening (ICD-10-PCS; 2019-08-27)
PROC: 10H07YZ Insertion of Other Device into Products of Conception, Via Natural or Artificial Opening (ICD-10-PCS; 2019-08-27)
PROC: 3E0R3BZ Introduction of Anesthetic Agent into Spinal Canal, Percutaneous Approach (ICD-10-PCS; 2019-08-27)
PROC: 00HU33Z Insertion of Infusion Device into Spinal Canal, Percutaneous Approach (ICD-10-PCS; 2019-08-27)
DX: O62.2 Other uterine inertia (principal); O26.62 Liver and biliary tract disorders in childbirth; K83.1 Obstruction of bile duct; O41.1230 Chorioamnionitis, third trimester, not applicable or unspecified; O99.89 Other specified diseases and conditions complicating pregnancy, childbirth and the puerperium; N17.9 Acute kidney failure, unspecified; O76 Abnormality in fetal heart rate and rhythm complicating labor and delivery; Z3A.37 37 weeks gestation of pregnancy; Z37.0 Single live birth
CPT/HCPCS: 01967; 01968; 36415; 51703; 59025; 59200; 80048; 80053; 82239; 85027; 86592; 86850; 86900; 86901; A9270-GY; J0290; J0456; J0690; J1200; J1580; J1885; J2175; J2210; J2250; J2274; J2300; J2370; J2405; J2590; J2765; J3010; J3490; J7050; J7120

== ENCOUNTER 2020-10-06 21:55 | Emergency (ER) | payer BC, SELFPAY ==
[2020-10-06] MEDS ORDERED: Ketorolac 60 MG/2 ML SDV IM ONE (22:46)
--- NOTE | 2020-10-06 22:50 | EDM.PDOC ---
ED HPI GENERAL MEDICAL PROBLEM - General Chief Complaint: Lower Extremity Injury/Pain Stated Complaint: LEFT ANKLE Time Seen by Provider: 10/06/20 22:42 Source of Information: Reports: Patient, RN Notes Reviewed History Limitations: Reports: No Limitations - History of Present Illness INITIAL COMMENTS - FREE TEXT/NARRATIVE: Patient is a 29-year-old female who presents to the ER for the evaluation of a left ankle injury. Patient states that she was in her garage, when she missed a step that she knew was there, she ended up feeling she was falling forward as her foot kind of dropped, but she ended up falling backwards, so she did not hit her head. She states she is having pain in her left ankle and she is not been able to bear too much weight on this since then. She does present on crutches. Denying any numbness or tingling distal to the injury. Patient's not had any prior injuries to this ankle. Patient denies any other sick-like symptoms, fever/chills, cough/shortness of breath, nausea/vomiting/diarrhea. She has not taken anything for pain management nor has she iced the ankle. Right Ankle Pain Score (Numeric/FACES): 8 - Related Data Allergies Allergy/AdvReac Type Severity Reaction Status Date / Time No Known Allergies Allergy Verified 10/06/20 22:13 Home Meds: Home Meds Calcium Carbonate [Tums] 500 mg PO Q2HR PRN 08/26/19 [History] Omeprazole 20 mg PO DAILY PRN 08/26/19 [History] FLUoxetine [PROzac] 1 tab PO DAILY 10/06/20 [History] Past Medical History - Past Health History Medical/Surgical History: Denies Medical/Surgical History Gastrointestinal History: Reports: GERD, Other (See Below) Other Gastrointestinal History: Cholestasis Genitourinary History: Reports: Renal Calculus Other Genitourinary History: Kidney stones 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: Reports: Polycystic Ovaries Psychiatric History: Reports: Depression Endocrine/Metabolic History: Reports: Obesity/BMI 30+ - Past Surgical History GI Surgical History: Reports: Cholecystectomy Social & Family History - Family History Family Medical History: No Pertinent Family History - Tobacco Use Tobacco Use Status *Q: Never Tobacco User - Caffeine Use Caffeine Use: Reports: Coffee - Recreational Drug Use Recreational Drug Use: No - Living Situation & Occupation Living situation: Reports: , with Spouse 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 ED EXAM, GENERAL - Physical Exam Exam: See Below Exam Limited By: No Limitations General Appearance: Alert, WD/WN, No Apparent Distress Respiratory/Chest: No Respiratory Distress, Lungs Clear, Normal Breath Sounds, No Accessory Muscle Use, Chest Non-Tender Cardiovascular: Normal Peripheral Pulses, Regular Rate, Rhythm, No Edema Peripheral Pulses: 2+: Dorsalis Pedis (L), Dorsalis Pedis (R) Extremities: Normal Inspection, Normal Capillary Refill, Limited Range of Motion (of left ankle d/t pain) Neurological: Alert, Oriented, Normal Cognition, No Motor/Sensory Deficits Psychiatric: Normal Affect, Normal Mood Skin Exam: Warm, Dry, Intact, Normal Color, No Rash Course - Vital Signs Last Recorded V/S: Last Vital Signs Temp 96.9 F 10/06/20 22:11 Pulse 96 10/06/20 22:11 Resp 16 10/06/20 22:11 BP 130/85 10/06/20 22:11 Pulse Ox 100 10/06/20 22:11 - Orders/Labs/Meds Orders: Active Orders 24 hr Category Date Time Status Ankle Min 3V Lt [CR] Stat Exams 10/06/20 22:15 Taken Ketorolac [Toradol] Med 10/06/20 22:46 Once 60 mg IM ONETIME ONE RAGHU Bandage [Elastic Wrap] [OM.PC] Routine Oth 10/06/20 22:46 Ordered - Re-Assessments/Exams Free Text/Narrative Re-Assessment/Exam: 10/06/20 22:48 X-rays were obtained at time of triage, demonstrate no acute fracture or other bony abnormality appreciated by myself or Dr. Sutherland, we will Raghu wrap the patient's ankle, give her IM injection of Toradol for pain management have her follow-up in roughly a week or so if pain is not much better. Patient verbalized understanding of this plan. Departure - Departure Time of Disposition: 22:48 Disposition: Home, Self-Care 01 Condition: Good Clinical Impression: Moderate left ankle sprain Qualifiers: Encounter type: initial encounter Qualified Code(s): S93.402A - Sprain of unspecified ligament of left ankle, initial encounter - Discharge Information *PRESCRIPTION DRUG MONITORING PROGRAM REVIEWED*: No *COPY OF PRESCRIPTION DRUG MONITORING REPORT IN PATIENT ARA: No Instructions: Ankle Sprain, [id number] Referrals: Nevaeh Marte PA-C [Primary Care Provider] - Additional Instructions: You have been evaluated in the ED for your left ankle pain/injury. Your x-ray demonstrated no acute fracture or other bony abnormality. Please use ice as tolerated to the affected area. Please try to elevate the affected area to relieve swelling. Please continue to use the crutches as needed for ambulation. Recommend that you go to a local pharmacy or place like [facility], and obtain a stirrup ankle splint, tomorrow for further immobilization of the area and to provide stability/pain relief. You may take Tylenol 500 mg or ibuprofen 600mg q6 hrs for pain relief. Please do so until you have a tolerable level of pain with activity. Do not exceed 4000mg Tylenol or 3200mg ibuprofen in a 24 hour time period. If your pain is not much better in roughly 7 to 10 days time, recommend you seek care to have this area reevaluated. Please return to ED if your symptoms should change or worsen. Sepsis Event Note (ED) - Evaluation Sepsis Screening Result: No Definite Risk - Focused Exam Vital Signs: Vital Signs Temp Pulse Resp BP Pulse Ox 10/06/20 22:11 96.9 F 96 16 130/85 100 - My Orders Last 24 Hours: My Active Orders 10/06/20 22:15 Ankle Min 3V Lt [CR] Stat 10/06/20 22:46 Ketorolac [Toradol] 60 mg IM ONETIME ONE RAGHU Bandage [Elastic Wrap] [OM.PC] Routine - Assessment/Plan Last 24 Hours: My Active Orders 10/06/20 22:15 Ankle Min 3V Lt [CR] Stat 10/06/20 22:46 Ketorolac [Toradol] 60 mg IM ONETIME ONE RAGHU Bandage [Elastic Wrap] [OM.PC] Routine
--- NOTE | 2020-10-07 06:47 | CR ---
Left ankle: 4 views of the left ankle were obtained. Comparison: No prior ankle study is available. Ankle mortise is symmetric. No acute fracture, dislocation or other bony abnormality is appreciated. Impression: 1. Nothing acute is appreciated on 4 view left ankle exam. Diagnostic code #1
== END 2020-10-06 23:15 | disposition home or self-care (01) ==
LOC: JD.ED 21:55
DX: S93.402A Sprain of unspecified ligament of left ankle, initial encounter (principal); K21.9 Gastro-esophageal reflux disease without esophagitis; Z79.899 Other long term (current) drug therapy; X50.1XXA Overexertion from prolonged static or awkward postures, initial encounter
CPT/HCPCS: 73610; 96372; 99283; J1885; 99282

== ENCOUNTER 2022-06-07 06:38 | Emergency (ER) | payer SELFPAY ==
[2022-06-07 07:35] LABS: ESTIMATED GFR 89 mL/min (>60)
[2022-06-07] MEDS ORDERED: Famotidine 20 MG Tab PO STA (10:29)
== END 2022-06-07 10:45 | disposition home or self-care (01) ==
LOC: JD.ED 06:38
DX: K21.9 Gastro-esophageal reflux disease without esophagitis (principal); E66.9 Obesity, unspecified; Z68.42 Body mass index [BMI] 45.0-49.9, adult; Z79.899 Other long term (current) drug therapy
CPT/HCPCS: 36415; 71046; 80053; 83880; 84484; 85025; 85379; 93005; 99285; A9270; 93010; 99284

== ENCOUNTER 2022-10-26 22:01 | Emergency (ER) | payer BC ==
[2022-10-26] MEDS ORDERED: Ketorolac 60 MG/2 ML SDV IM ONE (22:27)
[2022-10-26] MEDS ORDERED: Penicillin G Benzathine 1,200,000 Units/2 ML Syringe IM ONE (22:27)
[2022-10-26] MEDS ORDERED: Ondansetron 4 MG/2 ML SDV IM ONE (22:27)
== END 2022-10-26 23:31 | disposition home or self-care (01) ==
LOC: JD.ED 22:01
DX: J02.0 Streptococcal pharyngitis (principal); R11.2 Nausea with vomiting, unspecified; R51.9 Headache, unspecified; K21.9 Gastro-esophageal reflux disease without esophagitis; E66.9 Obesity, unspecified; Z68.42 Body mass index [BMI] 45.0-49.9, adult; Z79.899 Other long term (current) drug therapy; Z86.16 Personal history of COVID-19
CPT/HCPCS: 96372; 99283; J0561; J1885; J2405